=== PATIENT | female | born 1965 | race Caucasian/White ===

== ENCOUNTER 2016-09-04 20:11 | Inpatient (IN) | payer MEDICARE ==
[~2016-09-04] VITALS: Ht 165.1 cm; Wt 74.4 kg
[~2016-09-04 20:11] MED LIST: AMBIEN10 MG PO; BACTRIM DS TABL1 TAB PO; CLIMARA 0.0.075 MG/P TD; DEPAKENE250 MG PO; HYDROCODONE-APA1 TAB PO; KLONOPIN1 MG PO; METHADONE5 MG PO; NICODERM C1 PATCH .1 TRANSDERM; NORVASC10 MG PO; OXYCODONE HCL10 MG PO; PRILOSEC20 MG PO; SEROQUEL300 MG PO; SOMA350 MG PO; SUBUTEX8 MG TD; TOPROL XL100 MG PO; TOPROL XL50 MG PO; VALIUM10 MG PO; ZANAFLEX4 MG PO; ZOFRAN ODT4 MG/UDTAB PO
[2016-09-04 21:19] LABS: BASOPHILS 0.1 % (0.0-2.0); EOSINOPHILS 0.1 % (0-7); HEMOGLOBIN 12.6 g/dL (12-16); IMMATURE GRANULOCYTES 0.3 % (0-5); LYMPHOCYTES 10.2 % (15-50); MCH 32.5 pg (26.0-34.0); MCHC 32.3 g/dL (31.0-37.0); MCV 100.5 fL (80.0-100.0); MEAN PLATELET VOLUME 11.6 fL (7.4-10.4); NEUTROPHILS 77.3 % (40-80); PLATELET COUNT 172 10x3/uL (130-400); RBC 3.88 10x6/uL (4.00-5.40); RDW 13.2 % (11.5-14.5); WBC 12.2 10x3/uL (4.8-10.8)
[2016-09-04 22:09] LABS: ALBUMIN 3.5 g/dL (3.4-5.0); ALKALINE PHOSPHATASE 66 U/L (46-116); ALT (SGPT) 15 U/L (10-68); CALC OSMOLALITY 279 mosm/kg (275-300); CALCIUM 9.2 mg/dL (8.5-10.1); CARBON DIOXIDE 29.6 mmol/L (21.0-32.0); CHLORIDE - SERUM 102 mmol/L (98-107); CREATININE - SERUM 0.7 mg/dL (0.6-1.3); GLUCOSE 109 mg/dL (74-106); POTASSIUM - SERUM 3.4 mmol/L (3.5-5.1); PROTEIN - SERUM 7.5 g/dL (6.4-8.2); SODIUM 141 mmol/L (136-145); UREA NITROGEN 8 mg/dL (7-18); eGFR NON AFRICAN AMERICAN > 90 mL/min (90-120)
[2016-09-04 22:26] LABS: CREATINE KINASE 162 UL (21-215)
[2016-09-04 22:32] LABS: TROPONIN-I 0.087 ng/mL (0.000-0.060)
[2016-09-04 23:14] LABS: APPEARANCE CLOUDY (CLEAR); BILIRUBIN NEGATIVE (NEGATIVE); COLOR YELLOW (YELLOW); GLUCOSE NEGATIVE (NEGATIVE); KETONE SMALL mg/dL (NEGATIVE); LEUKOCYTE ESTERASE TRACE (NEGATIVE); NITRITE NEGATIVE (NEGATIVE); PROTEIN TRACE mg/dL (NEGATIVE); UROBILINOGEN NORMAL (NORMAL)
[2016-09-04 23:15] LABS: UDS - AMPHET NEGATIVE QUAL (NEGATIVE); UDS - BARB NEGATIVE QUAL (NEGATIVE); UDS - BENZO POSITIVE QUAL (NEGATIVE); UDS - COCAINE NEGATIVE QUAL (NEGATIVE); UDS - METH NEGATIVE QUAL (NEGATIVE); UDS - OPIATE POSITIVE QUAL (NEGATIVE); UDS - PCP NEGATIVE QUAL (NEGATIVE); UDS - THC NEGATIVE QUAL (NEGATIVE)
[2016-09-04 23:16] LABS: RED CELLS - URINE 0-5 /hpf (0-5); WHITE CELLS - URINE 0-5 /hpf (0-5)
[2016-09-04 23:17] LABS: BACTERIA FEW /hpf (NONE SEEN)
[2016-09-05] VITALS (28 sets, daily range): BP systolic 109–178; BP diastolic 59–121; BMI 27.3
[2016-09-05 00:52] LABS: ACETAMINOPHEN 1.7 ug/mL (10.0-30.0); VALPROIC ACID (DEPAKOTE) 57.2 ug/mL (50.0-100.0)
--- NOTE | 2016-09-05 02:00 | NUR ---
PT REC'D TO ROOM 2305 FROM ER ON STRETCHER, PT ABLE TO MOVE SELF OVER TO BED, LEFT EJ PIV WITH NS @ 10CC/HR, CM-ST@ 100, BP ELEVATED, ABRASION NOTED TO RIGHT CHILEL, PT WILL AWAKEN TO VERBAL STIMULI, ORIENTED X 3, O2 @ 4LITERS VIA NC, MAEE, SR UP X 2, CALL LIGHT IN REACH.
--- NOTE | 2016-09-05 02:20 | NUR ---
AND SISTER BROUGHT TO BS, UPDATE GIVEN AND QUESTIONS ANSWERED, PT RESTING EYES CLOSED, BP REMAINS ELEVATED, WILL MONITOR CLOSELY FOR CHANGES.
--- NOTE | 2016-09-05 03:15 | NUR ---
SPOKE WITH DR. ARREGUIN REGARDING ELEVATED BP, NEW ORDERS REC'D.
--- NOTE | 2016-09-05 03:30 | NUR ---
20MG LABETALOL GIVEN SLOW IVP, BP 158/112, HR 110, PT RESTING EYES CLOSED, RESP EVEN AND UNLABORED.
--- NOTE | 2016-09-05 03:45 | NUR ---
SPOKE WITH DR. ARREGUIN REGARDING PT'S ELEVATED BP, NEW ORDERS REC'D.
--- NOTE | 2016-09-05 04:00 | NUR ---
BP IMPROVED 153/96, WILL CONT TO MONITOR CLOSELY FOR CHANGES.
--- NOTE | 2016-09-05 04:45 | NUR ---
PT AWAKE, REQUESTING TO GO TO THE BATHROOM, PT GROGGY, PLACED ON BEDPAN, BP TRENDING UP.
--- NOTE | 2016-09-05 05:10 | NUR ---
PT REMOVED FROM BEDPAN, VOIDED 350CC CONCENTRATED URINE, PERICARE GIVEN, BP ELEVATED 169/102 WILL REPEAT LABETALOL DOSE
--- NOTE | 2016-09-05 05:45 | NUR ---
LABETALOL 40MG GIVEN SLOWLY OVER SEVERAL MINUTES, PT RESTING EYES CLOSED, VSS.
--- NOTE | 2016-09-05 06:15 | NUR ---
FAMILY AT BS, UPDATE GIVEN AND QUESTIONS ANSWERED.
--- NOTE | 2016-09-05 13:18 | NUR ---
Is the patient Alert and Oriented? Yes 0 * How many steps to enter\exit or inside your home? 3 0 * PCP DR. LOJA 0 * Pharmacy [facility] 0 * Preadmission Environment Home with Family 0 * ADLs Independent 0 * Equipment Cane 0 * List name and contact numbers for known caregivers / representatives who currently or will assist patient after discharge: SPOUSE: CRISTINA [phone] SON: CRISTINA [phone] SISTER: ALFRED [phone] * Community resources currently utilized None 0 * Additional services required to return to the preadmission environment? No 0 * Can the patient safely return to the preadmission environment? Yes 0 * Has this patient been hospitalized within the prior 30 days at any hospital? No PATIENT STATES SHE LIVES AT HOME WITH HER , CRISTINA AND HER SON, CRISTINA. PATIENT STATES THAT DR. LOJA IS HER PCP. SHE GETS HER MEDS FROM [facility]. PATIENT STATES SHE HAS A CANE. SHE HAD [facility] WITHIN THE LAST 6 MONTHS. THERE ARE 3 STEPS TO ENTER HER HOME. SHE STATES HER WILL BE AVAILABLE TO DRIVE HER HOME AT DISCHARGE. NO DISCHARGE NEEDS IDENTIFIED AT THIS TIME.
--- NOTE | 2016-09-05 19:30 | NUR ---
REPORT REC'D AND CARE ASSUMED, REC'D PT RESTING IN BED ON O2 @ 2LITERS VIA NC, PT AWAKENS TO VERBAL STIMULI ORIENTED X 3, LEFT EXTERNAL JUGULAR PIV WITH NS INFUSING @ 125CC/HR, MAEE, PT DENIES PAIN OR NEEDS, BILAT SCD'S IN PLACE AND ON, SR UP X 2, CALL LIGHT IN REACH.
--- NOTE | 2016-09-05 20:15 | NUR ---
PT ASSISTED UP TO BSC TO VOID, VOIDED 300 CC CLEAR YELLOW URINE, BACK TO BED WITHOUT DIFFICULTY.
--- NOTE | 2016-09-05 20:35 | NUR ---
EVENING MEDS GIVEN WITH WATER, NO FURTHER NEEDS VOICED.
--- NOTE | 2016-09-05 21:00 | NUR ---
NO VISITORS IN AT THIS TIME.
--- NOTE | 2016-09-05 22:00 | NUR ---
PT ASSISTED UP TO BSC TO VOID, VOIDED 100 CC CLEAR YELLOW URINE, BACK TO BED, PT REQUESTING SOMETHING TO DRINK, APPLE JUICE PROVIDED ON REQUEST, CALL LIGHT IN REACH, VISIBLE TO NURSES STATION.
--- NOTE | 2016-09-05 23:15 | NUR ---
REASSESSMENT COMPLETED, PT DENIES NEEDS OR PAIN , VSS, WILL CONT TO MONITOR FOR CHANGES.
[2016-09-06] VITALS (17 sets, daily range): BP systolic 100–153; BP diastolic 54–113; Ht 165.1 cm; Wt 74.4 kg
--- NOTE | 2016-09-06 01:30 | NUR ---
PT AWAKE, REQUESTING SOMETHING TO SNACK ON, ICE CREAM PROVIDED, VSS, PT DENIES NEEDS.
--- NOTE | 2016-09-06 03:15 | NUR ---
RAIOLOGY @ BS FOR AM CXR.
--- NOTE | 2016-09-06 03:45 | NUR ---
PT COMPLAINS OF BEING HUNGRY, SANDWICH TRAY PROVIDED, PT REPOSITIONED UP IN BED FOR COMFORT, DENIES PAIN OR OTHER NEEDS, SR UP X 2, CALL LIGHT IN REACH.
--- NOTE | 2016-09-06 04:00 | NUR ---
LAB AT FOR AM LAB DRAW
--- NOTE | 2016-09-06 04:40 | NUR ---
ROUTINE MEDS GIVEN, PT STATES " I WISH I COULD GET OUT OF HERE, I WANT TO GO HOME"
[2016-09-06 04:54] LABS: BASOPHILS 0 % (0.0-2.0); EOSINOPHILS 0.2 % (0-7); HEMATOCRIT 35.9 % (36.0-48.0); HEMOGLOBIN 11.4 g/dL (12-16); IMMATURE GRANULOCYTES 0.4 % (0-5); LYMPHOCYTES 41.4 % (15-50); MCH 31.6 pg (26.0-34.0); MCHC 31.8 g/dL (31.0-37.0); MCV 99.4 fL (80.0-100.0); MEAN PLATELET VOLUME 11.8 fL (7.4-10.4); MONOCYTES 15.5 % (2-11); NEUTROPHILS 42.5 % (40-80); PLATELET COUNT 145 10x3/uL (130-400); RBC 3.61 10x6/uL (4.00-5.40); RDW 13.1 % (11.5-14.5)
[2016-09-06 05:31] LABS: CALC OSMOLALITY 289 mosm/kg (275-300); CALCIUM 8.8 mg/dL (8.5-10.1); CARBON DIOXIDE 30.3 mmol/L (21.0-32.0); CHLORIDE - SERUM 107 mmol/L (98-107); CREATININE - SERUM 0.7 mg/dL (0.6-1.3); GLUCOSE 113 mg/dL (74-106); POTASSIUM - SERUM 3.2 mmol/L (3.5-5.1); SODIUM 146 mmol/L (136-145); UREA NITROGEN 6 mg/dL (7-18); eGFR NON AFRICAN AMERICAN > 90 mL/min (90-120)
[2016-09-06 05:48] LABS: WBC 4.7 10x3/uL (4.8-10.8)
--- NOTE | 2016-09-06 06:15 | NUR ---
AM MEDS GIVEN, PT ASSISTED UP TO BSC AND BACK TO BED WITHOUT DIFFICULTY
--- NOTE | 2016-09-06 07:00 | NUR ---
ASSESSMENT COMPLETE PER FLOWSHEET.
--- NOTE | 2016-09-06 09:00 | NUR ---
SLEEPING NO DISTRESS NOTED. SR UP X2.
--- NOTE | 2016-09-06 11:00 | NUR ---
SLEEPING NO DISTRESS NOTED SR UP X 2. CALL LIGHT WITHIN REACH.
--- NOTE | 2016-09-06 12:00 | NUR ---
SITTING UP ON SIDE OF BED TO EAT LUNCH NO CO AT TIME.
--- NOTE | 2016-09-06 12:46 | CN ---
PATIENT NAME:RAFIA RANDHAWA MEDICAL RECORD: [id number] : 63 LOCATION:[facility]5 ADMIT DATE: 09/06/16 ACCOUNT: [id number] CONSULTING PHYSICIAN: CARO ROBERTSON MD REFERRING PHYSICIAN: ANTOINE CRANDALL MD DATE OF CONSULTATION: 09/05/2016 IDENTIFYING DATA: The patient is 50 years old and she is admitted to the hospital secondary to an overdose. CHIEF COMPLAINT: None. HISTORY OF PRESENT ILLNESS: The patient tells me that her mother 2 weeks ago and that she has been upset. She ordinarily takes multiple psychiatric and pain and anxiolytic medications. She apparently got a prescription for Valium pill then took 36, 10 mg tablets in 3-4 days. In addition to this, she has opiates in her system, although she does not have a prescription for opiates. She also takes Flexeril, Seroquel and Ambien. She apparently has a history of bipolar disorder and fibromyalgia. MENTAL STATUS EXAMINATION: The patient is sleepy, but alert and oriented. She has a mood that is depressed and an affect that is appropriate. Thought processes are goal directed. Memory, concentration and abstraction abilities are mildly impaired. She says that she must have something for pain or anxiety even though she is barely awake and clearly is still sedated. ASSESSMENT: 1. Polysubstance abuse. 2. Bipolar disorder by history. 3. Probable polysubstance abuse. PLAN: At this time, the patient is not acutely dangerous. I do not think that this was a suicide attempt. I do think the patient is in need of outpatient mental health. I have recommended substance abuse treatment to her on an inpatient basis. She has refused. I have recommended substance abuse treatment on an outpatient basis to her and she has also refused. I think the most reasonable thing is not to prescribe to her any RELIEF CAPTAIN depressants. I know that she will find that to be unacceptable, but I think that her inability to control her use of these behaviors and her unwillingness to accept substance use treatment is necessitating this decision. This was not a suicide attempt. I do not believe she was trying to hurt herself. Interestingly, she has a son who accidentally overdosed and , he was a substance abuser. She has a sister who has also accidentally overdosed and is a substance abuser. Given the circumstances in family history, it is almost stunning that the patient can insists that she does not have a substance use problem, but that is her position. I think prescribing RELIEF CAPTAIN depressants is not appropriate for her and I would strongly advise her practitioners not to do so. TRANSINT:[id number] Voice Confirmation ID: [id number] DOCUMENT ID: [id number] CONSULT REPORT [id number] RAFIA RANDHAWA PETER MD at 1246 CC: [id number] DICTATION DATE: 09/05/16 163 MULTI SLIDE MACHINE TENDER: 09/05/16 1847 ADM IN [facility] [address] [id number]
--- NOTE | 2016-09-06 17:00 | NUR ---
SITTING UP ON SIDE OF BED EATING SUPPER CO MIGRAINE. INSTRUCT THE ONLY THING ORDER IS TYLENOL.
--- NOTE | 2016-09-06 19:00 | NUR ---
RECEIVED PATIENT IN BED WITH EYES OPEN, ASSESSMENT COMPLETE PER FLOWSHEET. PATIENT IS AO X4, DEMEANOR IS PLEASANT BUT PATIENT "WANTS OUT OF THE HOSPITAL". EYES PERRLA @ 3MM WITH BRISK RESPONSE, SCLERA IS WHITE. 2L O2 VIA NC ORDERED BUT PATIENT REMOVED AND REFUSES TO WEAR, OXYGEN SAT 98%. ORAL/NASAL MUCOSA IS MOIST AND INTACT, TONGUE IS MIDLINE. 20G IV NOTED R EJ, PATENT WITH DRESSING CDI. S1/S2 NOTED WITH PATIENT NSR ON TELEMETRY, RATE IS RHYTHMIC AND REGULAR. LUNG SOUNDS ARE CLEAR THROUGHOUT, BREATHING IS EVEN AND EFFORTLESS. PATIENT VOIDS USING BEDSIDE COMMODE, NO IRRITATION OR REDNESS NOTED IN PERINEAL AREA. FULL ROM ALL EXTREMITIES, NO WEAKNESS NOTED. BIOMEDICAL EQUIPMENT TECH/PEDAL STRENGTH IS EQUAL AND BILATERAL, ALL PULSES PALPABLE. PATIENT STATES PAIN 2/10 IN BACK, REPOSITIONING AND MEDICATION PROVIDED. PATIENT DENIES OTHER NEEDS AT THIS TIME, ALL VSS AND WILL CONTINUE TO MONITOR.
[2016-09-07 03:00] VITALS: BP 129/86
[2016-09-07 03:25] LABS: BASOPHILS 0.2 % (0.0-2.0); EOSINOPHILS 0 % (0-7); HEMATOCRIT 36.9 % (36.0-48.0); HEMOGLOBIN 11.9 g/dL (12-16); IMMATURE GRANULOCYTES 0.5 % (0-5); LYMPHOCYTES 26.9 % (15-50); MCH 31.7 pg (26.0-34.0); MCHC 32.2 g/dL (31.0-37.0); MCV 98.4 fL (80.0-100.0); MEAN PLATELET VOLUME 11.5 fL (7.4-10.4); MONOCYTES 9.1 % (2-11); NEUTROPHILS 63.3 % (40-80); RBC 3.75 10x6/uL (4.00-5.40); RDW 12.9 % (11.5-14.5); WBC 5.5 10x3/uL (4.8-10.8)
[2016-09-07 03:26] LABS: PLATELET COUNT 189 10x3/uL (130-400)
[2016-09-07 03:35] LABS: CALCIUM 8.8 mg/dL (8.5-10.1); CARBON DIOXIDE 24.5 mmol/L (21.0-32.0); CHLORIDE - SERUM 105 mmol/L (98-107); CREATININE - SERUM 0.8 mg/dL (0.6-1.3); POTASSIUM - SERUM 3.3 mmol/L (3.5-5.1); SODIUM 142 mmol/L (136-145); eGFR NON AFRICAN AMERICAN 80 mL/min (90-120)
[2016-09-07 03:47] LABS: CALC OSMOLALITY 285 mosm/kg (275-300); GLUCOSE 195 mg/dL (74-106); UREA NITROGEN 8 mg/dL (7-18)
[2016-09-07 07:00] VITALS: BP 132/93
--- NOTE | 2016-09-07 07:00 | NUR ---
ASSESSMENT COMPLETE PER FLOWSHEET.
--- NOTE | 2016-09-07 11:00 | NUR ---
DR CRANDALL HERE MEDS CALLED INTO [facility]. PT DISCHARGE COMPLETE. IV DCD WITH [facility] INTACT. INSTRUCT PT TO FOLLOW UP WITH DR LOJA. PT WANTS TO MAKE OWN APPT FOR ONE WEEK. FOLLOW UP WITH [facility]. PT AND STATES THEY UNDERSTAND THE IMPORTANCE OF THE FOLLOW UPS AND WILL FOLLOW THROUGH WITH THEM. 1200 DISCHARGE TO HOME VIA PRIVATE AUTO. VOICES NO QUESTIONS AT THIS TIME. MEDICATIONS EXPLAINED TO HOW TO TAKE AND WHAT THEY ARE FOR. STATES HE UNDERSTANDS. INFORMATION ON ANTIBOTICS GIVEN TO . DESCRIPTIVE INFORMATION. LEFT WITH VIA PRIVATE AUTO. PT STATES, "I WANT A CIGERETTE SO IM NOT WAITING ON A WHEELCHAIR." PT LEFT WITH .
[2016-09-07] MEDS ORDERED: MEDROL DOSE PACK4 MG PO (11:58)
[2016-09-07] MEDS ORDERED: DOXYCYCLINE HY100 M2 PO (11:59)
[2016-09-07] MEDS ORDERED: CEFUROXIME250 MG PO (12:01)
--- NOTE | 2016-09-07 13:59 | EC ---
PATIENT:RAFIA RANDHAWA DATE OF SERVICE: 09/06/16 SEX: F MEDICAL RECORD: [id number] DATE OF : 63 LOCATION:[facility] AGE OF PATIENT: 50 ADMISSION DATE: 09/06/16 REFERRING PHYSICIAN: INTERPRETING PHYSICIAN: SHIREEN GRANDE MD ECHOCARDIOGRAM REPORT ECHO CHARGES 4 ECHO COMPLETE CLINICAL DIAGNOSIS: HTN ECHOCARDIOGRAPHIC MEASUREMENTS (adult normal given) AC root (d.<3.7cm) 3.4 LV Septum d (<1.2 cm> 1.7 Valve Excursion 1.6 LV Septum (systole) 2.0 Left Atria (s.<4.0cm> 3.3 LVPW d(<1.2cm) 2.0 RV (d.<2.3cm) 3.2 LVPW (sytole) 2.2 LV diastole(<5.6CM) 4.0 MV E-F(>70mm/sec) LV systole 2.0 LVOT Diameter 1.8 MV exc.(>10mm) 1.4 Est.ejection fraction (50-75%) Pericardial Effusion N DOPPLER: LVIT A 133 E 115 LA RVSP 22 LVOT 124 AOP1/2T Asc. Ao 164 RVOT 97 RA PA 123 AV Gradient Peak 10.73 AV Mean 6.51 AV Area 1.9 MV Gradient Peak 7.83 MV Mean 3.31 MV Area COMMENTS: Latex Caster: Kaylee PIERCE Glass Mould Cleaner:Vidhya Grande TAPE# PACS DATE OF SERVICE: 09/05/2016 FINDINGS: 1. Left ventricle chamber size is within normal limits. Left ventricular systolic function is normal. Overall ejection fraction estimated at 60%. 2. Left atrium is within normal limits at 3.3 cm. Right atrium and right ventricular chamber sizes are upper limits of normal. 3. Valvular structures have normal structure and motion. 4. Doppler interrogation reveals mild tricuspid regurgitation. No other valvular insufficiency or stenosis. Pulmonary systolic pressure is normal ECHOCARDIOGRAM REPORT [id number] RAFIA RANDHAWA estimated 22 mmHg. 5. No evidence of pericardial effusion or left ventricular thrombus. TRANSINT:[id number] Voice Confirmation ID: [id number] DOCUMENT ID: [id number] SHIREEN GRANED MD at 1350 CC: [id number] DICTATION DATE: 09/06/16929 MIDDLE SCHOOL MATH TEACHER: 09/06/16 1021 ADM IN [facility] [address] [place] [address]
--- NOTE | 2016-09-08 12:39 | CN ---
PATIENT NAME:RAFIA MONZON MEDICAL RECORD: [id number] : 63 LOCATION:[facility]2305 ADMIT DATE: 09/06/16 ACCOUNT: [id number] CONSULTING PHYSICIAN: JACOBO CAMPUZANO MD REFERRING PHYSICIAN: MARIELY CRANDALL MD DATE OF CONSULTATION: 09/05/2016 CONSULT REQUESTING PHYSICIAN: Mariely Crandall MD. REASON FOR CONSULTATION: Bilateral pneumonia, drug overdose, acute hypercapnic respiratory failure. HISTORY OF PRESENT ILLNESS: Ms. Monzon is a 50-year-old female, who was brought into the ER with acute mental status changes and possible drug overdose. According to the sister, their mother a few days ago and she was under a lot of stress. Probably, she takes some Valium to keep her nerves down. On evaluation in the ER, her CO2 was high and she was on respiratory acidosis. Also, her troponin level was high. Now, she is awake and alert. She has cough without significant sputum production. Also, she had some nausea, vomiting a few days ago and she thinks probably she might have aspirated when she was throwing up. REVIEW OF SYSTEMS: Mainly in the history of present illness. PAST MEDICAL HISTORY: 1. Seizure disorder. 2. Diabetes mellitus. 3. Hypertension. 4. COPD. 5. Chronic backache. PAST SURGICAL HISTORY: 1. Cholecystectomy. 2. . 3. Hysterectomy. 4. Shoulder surgery. ALLERGIES: SHE IS ALLERGIC TO CYMBALTA, TORADOL AND IMITREX. PRESENT MEDICATIONS: She is on Levaquin IV, discontinue. Her other medication is reviewed. PERSONAL AND SOCIAL HISTORY: The patient still continues to smoke almost a pack a day. She is a nondrinker. FAMILY HISTORY: Significant for cardiovascular disease and cancer. PHYSICAL EXAMINATION: GENERAL: Now, the patient is lying comfortably. She is not in acute distress. VITAL SIGNS: The blood pressure 135/83, pulse is 82, respirations 18, temperature is 99.7, SpO2 is 97% on 2 L nasal cannula. HEENT: Conjunctivae pink, sclerae nonicteric. NECK: Supple, no JVD. CHEST: The chest excursion is minimal on both bilateral crackles, wheezes on forceful expiration. CONSULT REPORT [id number] RAFIA MONZON HEART: Rhythm regular, normal sound, no murmur. ABDOMEN: Soft. Bowel sounds present. No hepatosplenomegaly. RECTAL: Deferred. EXTREMITIES: No cyanosis, no clubbing, no pedal edema. SKIN: Warm, normal turgor. CENTRAL NERVOUS SYSTEM: The patient is now awake and alert. There are no obvious cranial nerve abnormality. The gait was not tested. LABORATORY DATA: CBC: WBC is 12.2, hemoglobin 12.6, hematocrit is 39, the platelet count is 172. Chemistry: Sodium 141, potassium 3.4, BUN is 8, creatinine 0.7. ABG: The pH is 7.32, pCO2 of 61.1, pO2 is 69. IMPRESSION: 1. Acute hypoxic hypercapnic respiratory failure. 2. Respiratory acidosis secondary to #1. 3. Bilateral pneumonia, most likely community-acquired pneumonia, possibly aspiration at that time from nausea and vomiting. 4. Seizure disorder. 5. Drug overdose. 6. Tobacco dependence syndrome. 7. Acute exacerbation of chronic obstructive pulmonary disease. 8. Elevated troponin, possible stress leak. 9. Leukocytosis. 10. Hypokalemia. RECOMMENDATION: 1. I will start on Zosyn and doxycycline IV, albuterol/ipratropium nebulizer, Advair Diskus. As the patient has significant bronchospasm, I will start her IV corticosteroids. 2. Nicotine patch. 3. DVT prophylaxis. Dr. Crandall, once again, thanks for involving me in the care of Ms. Monzon. TRANSINT:[id number] Voice Confirmation ID: [id number] DOCUMENT ID: [id number] JACOBO CAMPUZANO MD at 1239 CC: PARIS LOJA MD [id number] DICTATION DATE: 09/05/16 1314 NEWS LIBRARIAN: 09/05/16 1422 DIS IN 09/07/[id number] [place] [address]
--- NOTE | 2016-09-17 07:17 | EEG ---
PATIENT:RAFIA RANDHAWA DATE OF SERVICE: 09/06/16 MEDICAL RECORD: [id number] DATE OF : 63 LOCATION:D.230 D.ICU ADMISSION DATE: 09/06/16 REFERRING PHYSICIAN: INTERPRETING PHYSICIAN: TITO BANDA MD DATE OF SERVICE: 09/06/2016 Referred as an inpatient by Dr. Freire, currently in room 2305. ELECTROENCEPHALOGRAM NUMBER: [id number]. DATE OF EXAMINATION: 09/05/2016 at 11:45 a.m. DATE OF : 1965 TECHNICAL DATA: This electroencephalographic recording consists of approximately 20 minutes of data collection utilizing the international 10/20 system of electrode placement and both referential and non-referential montages. Sixteen channels of electrocerebral recording are accompanied by the 17th channel dedicated to the electrocardiographic rhythm and 2 channels of electromyographic recording. Recording is performed in the lethargic state utilizing activation by photic stimulation. ELECTROENCEPHALOGRAPHIC DATA: The entirety of the recorded electrocerebral activity is performed in the lethargic state. Electromyographic artifact is diminished and rapid eye movements are not seen. The posterior dominant background consists of a symmetric semi-arrhythmic waxing and waning 6-7 Hz theta activity, which is suppressed by eye opening. The patient sleep with the appearance of typical 15 Hz sleep spindles and generalized symmetric and irregular delta slowing in the range of 2-3 Hz. The patient never appears to be fully alert. No focal slowing is identified. No epileptiform discharges are seen. Photic stimulation induces no abnormal change in the recorded electrocerebral activity. INTERPRETATION: Background slow (lethargy). This electroencephalographic recording is indicative of a mild to moderate diffuse encephalopathy. TRANSINT:[id number] Voice Confirmation ID: [id number] DOCUMENT ID: [id number] TITO BANDA MD at 0717 CC: [id number] DICTATION DATE: 09/06/16 0855 COOK FRY: 09/06/16 1011 DIS IN 09/07/16 [place] [address]
== END 2016-09-07 14:19 | disposition home or self-care (01) | DRG 917 ==
LOC: D.ER 20:11 → OBSVTIME 09-05 01:02 → D.ICU 09-05 01:02
PROVIDERS: Emergency Medicine Emergency Medical Services; ADMIT Emergency Medicine
DX: T42.4X1A Poisoning by benzodiazepines, accidental (unintentional), initial encounter (principal); G93.41 Metabolic encephalopathy; J96.02 Acute respiratory failure with hypercapnia; G93.49 Other encephalopathy; J69.0 Pneumonitis due to inhalation of food and vomit; J44.0 Chronic obstructive pulmonary disease with (acute) lower respiratory infection; I24.8 Other forms of acute ischemic heart disease; J44.1 Chronic obstructive pulmonary disease with (acute) exacerbation; F31.9 Bipolar disorder, unspecified; E11.9 Type 2 diabetes mellitus without complications; I10 Essential (primary) hypertension; R56.9 Unspecified convulsions; G89.29 Other chronic pain; E87.6 Hypokalemia; F17.200 Nicotine dependence, unspecified, uncomplicated

== ENCOUNTER 2017-01-16 16:09 | Emergency (ER) | payer MEDICARE ==
[2016-09-06 09:45] VITALS: BMI 27.3
[~2017-01-16 16:09] MED LIST changes: +CEFUROXIME250 MG PO; +DOXYCYCLINE HY100 M2 PO; +MEDROL DOSE PACK4 MG PO
[2017-01-16 17:11] LABS: BASOPHILS 0.1 % (0-2); EOSINOPHILS 0.7 % (0-7); HEMATOCRIT 38.1 % (36.0-48.0); HEMOGLOBIN 12.8 g/dL (12-16); IMMATURE GRANULOCYTES 0.5 % (0-5); LYMPHOCYTES 37.9 % (15-50); MCH 32.2 pg (26.0-34.0); MCHC 33.6 g/dL (31.0-37.0); MEAN PLATELET VOLUME 12.9 fL (7.4-10.4); MONOCYTES 6.4 % (2-11); NEUTROPHILS 54.4 % (40-80); RBC 3.97 10x6/uL (4.00-5.40); RDW 12.4 % (11.5-14.5); WBC 10.1 10x3/uL (4.8-10.8)
[2017-01-16 17:21] LABS: APPEARANCE SLT CLOUDY (CLEAR); BILIRUBIN NEGATIVE (NEGATIVE); COLOR STRAW (YELLOW); GLUCOSE NEGATIVE (NEGATIVE); KETONE NEGATIVE (NEGATIVE); LEUKOCYTE ESTERASE TRACE (NEGATIVE); NITRITE NEGATIVE (NEGATIVE); PROTEIN NEGATIVE (NEGATIVE); SPECIFIC GRAVITY 1.005 (1.005-1.020); UROBILINOGEN NORMAL (NORMAL); WHITE CELLS - URINE 0-5 /hpf (0-5)
[2017-01-16 17:22] LABS: BACTERIA MODERATE /hpf (NONE SEEN); MUCUS <1+ /lpf (NONE SEEN)
[2017-01-16 17:44] LABS: ALBUMIN 3.6 g/dL (3.4-5.0); ALKALINE PHOSPHATASE 69 U/L (46-116); ALT (SGPT) 13 U/L (10-68); BILIRUBIN - TOTAL 0.42 mg/dL (0.2-1.3); CALC OSMOLALITY 280 mosm/kg (275-300); CALCIUM 9.1 mg/dL (8.5-10.1); CARBON DIOXIDE 28.2 mmol/L (21.0-32.0); CHLORIDE - SERUM 106 mmol/L (98-107); CREATININE - SERUM 0.7 mg/dL (0.6-1.3); POTASSIUM - SERUM 3.9 mmol/L (3.5-5.1); SODIUM 142 mmol/L (136-145); UREA NITROGEN 6 mg/dL (7-18); eGFR NON AFRICAN AMERICAN > 90 mL/min (90-120)
[2017-01-16 17:45] LABS: GLUCOSE 97 mg/dL (74-106)
[2017-01-16 18:26] LABS: PLATELET COUNT 173 10x3/uL (130-400); PLATELET ESTIMATE NORMAL
== END 2017-01-16 18:49 | disposition home or self-care (01) ==
LOC: D.ER 16:09
PROVIDERS: Emergency Medicine
DX: R10.9 Unspecified abdominal pain (principal); R11.2 Nausea with vomiting, unspecified; F17.200 Nicotine dependence, unspecified, uncomplicated

== ENCOUNTER 2017-01-20 09:47 | Emergency (ER) | payer MEDICARE ==
[2016-09-06 09:45] VITALS: BMI 27.3
[2017-01-20 10:16] LABS: BASOPHILS 0.1 % (0-2); EOSINOPHILS 0 % (0-7); HEMATOCRIT 38.8 % (36.0-48.0); HEMOGLOBIN 12.8 g/dL (12-16); IMMATURE GRANULOCYTES 0.2 % (0-5); LYMPHOCYTES 11.9 % (15-50); MCH 32.1 pg (26.0-34.0); MCV 97.2 fL (80.0-100.0); MEAN PLATELET VOLUME 11.8 fL (7.4-10.4); MONOCYTES 6.7 % (2-11); NEUTROPHILS 81.1 % (40-80); PLATELET COUNT 163 10x3/uL (130-400); RBC 3.99 10x6/uL (4.00-5.40); RDW 12.5 % (11.5-14.5); WBC 16.1 10x3/uL (4.8-10.8)
[2017-01-20 10:21] LABS: AMORPHOUS SEDIMENT <1+ /lpf (NONE SEEN); APPEARANCE CLOUDY (CLEAR); BACTERIA MODERATE /hpf (NONE SEEN); BILIRUBIN NEGATIVE (NEGATIVE); COLOR YELLOW (YELLOW); GLUCOSE NEGATIVE (NEGATIVE); KETONE NEGATIVE (NEGATIVE); LEUKOCYTE ESTERASE NEGATIVE (NEGATIVE); NITRITE NEGATIVE (NEGATIVE); PROTEIN NEGATIVE (NEGATIVE); RED CELLS - URINE 0-5 /hpf (0-5); UROBILINOGEN NORMAL (NORMAL); WHITE CELLS - URINE 0-5 /hpf (0-5)
[2017-01-20 10:25] LABS: ALBUMIN 3.4 g/dL (3.4-5.0); BILIRUBIN - TOTAL 0.46 mg/dL (0.2-1.3); CALCIUM 9.2 mg/dL (8.5-10.1); CARBON DIOXIDE 26.5 mmol/L (21.0-32.0); CREATININE - SERUM 0.9 mg/dL (0.6-1.3); POTASSIUM - SERUM 3.5 mmol/L (3.5-5.1); PROTEIN - SERUM 7.2 g/dL (6.4-8.2)
[2017-01-20 10:39] LABS: UDS - AMPHET NEGATIVE QUAL (NEGATIVE); UDS - BARB NEGATIVE QUAL (NEGATIVE); UDS - BENZO NEGATIVE QUAL (NEGATIVE); UDS - COCAINE NEGATIVE QUAL (NEGATIVE); UDS - METH NEGATIVE QUAL (NEGATIVE); UDS - OPIATE POSITIVE QUAL (NEGATIVE); UDS - PCP NEGATIVE QUAL (NEGATIVE); UDS - THC POSITIVE QUAL (NEGATIVE)
== END 2017-01-20 12:58 | disposition home or self-care (01) ==
LOC: D.ER 09:47
PROVIDERS: Emergency Medicine; Nurse Practitioner Family
DX: J18.9 Pneumonia, unspecified organism (principal); F17.200 Nicotine dependence, unspecified, uncomplicated

== ENCOUNTER 2017-02-27 09:38 | Emergency (ER) | payer MEDICARE ==
[2016-09-06 09:45] VITALS: BMI 27.3
== END 2017-02-27 12:04 | disposition home or self-care (01) ==
LOC: D.ER 09:38
DX: G43.909 Migraine, unspecified, not intractable, without status migrainosus (principal); R11.2 Nausea with vomiting, unspecified

== ENCOUNTER → 2017-04-09 10:08 | Outpatient (CLI) | payer MEDICARE ==
[2016-09-06 09:45] VITALS: BMI 27.3
== END | disposition home or self-care (01) ==
LOC: D.US 10:08
DX: E04.1 Nontoxic single thyroid nodule (principal)

== ENCOUNTER → 2017-06-14 09:49 | Outpatient (CLI) | payer MEDICARE ==
[2016-09-06 09:45] VITALS: BMI 27.3
[~2017-06-14 09:49] MED LIST changes: +DEPAKOTE500 MG PO; +METOPROLOL TART50 MG PO; +TOFRANIL25 MG PO
== END | disposition home or self-care (01) ==
LOC: D.US 09:49
DX: E04.1 Nontoxic single thyroid nodule (principal)

== ENCOUNTER 2017-07-31 05:10 | Day surgery (SDC) | payer MEDICARE ==
[2017-07-27 14:41] LABS: BASOPHILS 0.1 % (0-2); EOSINOPHILS 1.1 % (0-7); HEMATOCRIT 42.3 % (36.0-48.0); HEMOGLOBIN 14.2 g/dL (12-16); IMMATURE GRANULOCYTES 0.4 % (0-5); LYMPHOCYTES 47.3 % (15-50); MCH 32.6 pg (26.0-34.0); MCHC 33.6 g/dL (31.0-37.0); MCV 97.2 fL (80.0-100.0); MEAN PLATELET VOLUME 10.9 fL (7.4-10.4); MONOCYTES 7.7 % (2-11); NEUTROPHILS 43.4 % (40-80); PLATELET COUNT 193 10x3/uL (130-400); RBC 4.35 10x6/uL (4.00-5.40); RDW 12.9 % (11.5-14.5); WBC 8.6 10x3/uL (4.8-10.8)
[2017-07-27 15:01] LABS: CALC OSMOLALITY 279 mosm/kg (275-300); CALCIUM 9.3 mg/dL (8.5-10.1); CARBON DIOXIDE 30.3 mmol/L (21.0-32.0); CHLORIDE - SERUM 103 mmol/L (98-107); CREATININE - SERUM 0.7 mg/dL (0.6-1.3); GLUCOSE 87 mg/dL (74-106); POTASSIUM - SERUM 4.2 mmol/L (3.5-5.1); SODIUM 142 mmol/L (136-145); UREA NITROGEN 8 mg/dL (7-18); eGFR NON AFRICAN AMERICAN > 90 mL/min (90-120)
[~2017-07-31] VITALS: Ht 165.1 cm; Wt 74.8 kg
--- NOTE | ~2017-07-31 | OP ---
PATIENT NAME: RAFIA RANDHAWA MEDICAL RECORD: [id number] :63 LOCATION:[facility]- ADMISSION DATE:07/31/17 SURGEON: DOUGLAS ELENA MD DATE OF OPERATION: 07/31/2017 PREOPERATIVE DIAGNOSES: 1. Bilateral thyroid nodules. 2. Left follicular thyroid nodule. 3. Hypertensive disorder. 4. Tobacco dependence syndrome. POSTOPERATIVE DIAGNOSES: 1. Bilateral thyroid nodules. 2. Left follicular thyroid nodule. 3. Hypertensive disorder. 4. Tobacco dependence syndrome. PROCEDURE: Total thyroidectomy. SURGEON: Douglas Elena MD REPORT OF PROCEDURE: The patient's neck was prepped and draped in sterile fashion. A transverse incision was made through a skin crease in the patient's mid neck. Electrocautery was used to dissect through the subcutaneous tissues and the platysma. We then made subcutaneous flaps overlying the strap musculature. The median raphe was then opened up using electrocautery. We approached the left side of the thyroid first. We were able to elevate the strap musculature, and using a peanut, we were able to takedown some of the adhesions. We continued our dissection superiorly and took down the right thyroidal vessels using 2-0 silk ties. We then continued our mobilization on the inferior aspect of the thyroid and took down the inferior thyroidal vessels again with 2-0 silk ties. We then did a tedious dissection of the thyroid off the surrounding tissues. The nodular mass was not adherent to any structures and did not have any sort of cancerous adhesions that were visible. The posterior aspect of the thyroid did dip down towards the tracheoesophageal groove and made the dissection very difficult, but we were eventually able to remove the thyroidal tissue using blunt dissection and electrocautery. The inferior parathyroid gland was visualized and appeared to be normal in appearance. I did not see the superior thyroid gland on the left side. I was never able to clearly visualize the patient's recurrent laryngeal nerve on the left. At this point, we placed a thyroidal tissue back in its natural position and approached the right side. Again, the scanty adhesions were taken down using a peanut. At this point, we could see that this portion of the thyroid appeared to be normal with no distinctively large masses present. The superior and inferior thyroidal vessels were freed up and ligated using 2-0 silk ties. Again, tedious dissection was performed of the remainder of the thyroid, taking it off the surrounding attachments and any vasculature that was encountered was treated with either 4-0 ties or small clips. Eventually, we were able to completely dissect the thyroid off the surrounding tissues and sent it off intact for permanent specimen. I was able to see the recurrent laryngeal nerve on the left side and it appeared to be intact. We irrigated out the wound thoroughly with normal saline and any potential bleeding surfaces were treated with clips or 4-0 ties. At conclusion of the case, I saw no sign of any active surgical bleeding. We then filled up the space using thrombin-soaked Gelfoam. The strap musculature was then reapproximated in the midline using running 2-0 OPERATIVE REPORT [id number] RAFIA RANDHAWA Vicryls. Bernardo's was then reapproximated with interrupted 3-0 Vicryl. A total of 10 mL of 0.25% Marcaine with epinephrine was infused into the surrounding tissues and the skin was closed with running subcutaneous 5-0 Monocryl. A dressing was then applied. COMPLICATIONS: None. CONDITION: Stable. ANESTHESIA: General endotracheal and local. BLOOD LOSS: 30 mL. TRANSINT:[id number] Voice Confirmation ID: [id number] DOCUMENT ID: [id number] DOUGLAS ELENA MD at 1542 CC: PARIS LOJA MD [id number] DICTATION DATE: 07/31/17 1157 PLUG GROWER: 07/31/17 1232 ADM IN [facility] [address] [id number]
[~2017-07-31 05:10] MED LIST changes: -TOFRANIL25 MG PO
[2017-07-31] MEDS ORDERED: TOFRANIL25 MG PO (08:16)
[2017-07-31 08:29] VITALS: BP 155/103; Ht 165.1 cm; Wt 74.8 kg
[2017-07-31] MEDS ORDERED: HYDROCODONE-APA1 TAB PO (11:49)
== END 2017-07-31 19:36 | disposition home or self-care (01) ==
LOC: D.SDCHOLD 05:10 → D.OPS 05:10 → EDSTATUS 10:00 → D.SDCHOLD 10:00 → D.OPS 19:36 → D.SDCHOLD 19:36
PROVIDERS: Surgery
DX: E04.2 Nontoxic multinodular goiter (principal); F17.203 Nicotine dependence unspecified, with withdrawal; I10 Essential (primary) hypertension; J44.9 Chronic obstructive pulmonary disease, unspecified; K21.9 Gastro-esophageal reflux disease without esophagitis

== ENCOUNTER 2017-10-09 19:00 | Inpatient (IN) | payer MEDICARE ==
[~2017-10-09] VITALS: Ht 165.1 cm; Wt 74.8 kg
[~2017-10-09 19:00] MED LIST changes: +TOFRANIL25 MG PO
[2017-10-09 19:34] LABS: BASOPHILS 0.1 % (0-2); EOSINOPHILS 0.7 % (0-7); HEMATOCRIT 41.6 % (36.0-48.0); HEMOGLOBIN 14.4 g/dL (12-16); IMMATURE GRANULOCYTES 0.2 % (0-5); LYMPHOCYTES 41.3 % (15-50); MCHC 34.6 g/dL (31.0-37.0); MCV 95.2 fL (80.0-100.0); MONOCYTES 6.5 % (2-11); NEUTROPHILS 51.2 % (40-80); PLATELET COUNT 188 10x3/uL (130-400); RBC 4.37 10x6/uL (4.00-5.40); RDW 13.2 % (11.5-14.5); WBC 10.9 10x3/uL (4.8-10.8)
[2017-10-09 19:50] LABS: ALBUMIN 4.2 g/dL (3.4-5.0); ALKALINE PHOSPHATASE 57 U/L (46-116); ALT (SGPT) 19 U/L (10-68); AMYLASE - SERUM 35 U/L (25-115); BILIRUBIN - TOTAL 0.51 mg/dL (0.2-1.3); CALC OSMOLALITY 280 mosm/kg (275-300); CALCIUM 9.4 mg/dL (8.5-10.1); CARBON DIOXIDE 23.6 mmol/L (21.0-32.0); CHLORIDE - SERUM 104 mmol/L (98-107); CREATININE - SERUM 0.7 mg/dL (0.6-1.3); GLUCOSE 93 mg/dL (74-106); LIPASE 105 U/L (73-393); PROTEIN - SERUM 7.8 g/dL (6.4-8.2); SODIUM 141 mmol/L (136-145); UREA NITROGEN 13 mg/dL (7-18); eGFR NON AFRICAN AMERICAN > 90 mL/min (90-120)
[2017-10-09 22:02] LABS: APPEARANCE CLEAR (CLEAR); BILIRUBIN NEGATIVE (NEGATIVE); COLOR YELLOW (YELLOW); GLUCOSE NEGATIVE (NEGATIVE); KETONE NEGATIVE (NEGATIVE); NITRITE NEGATIVE (NEGATIVE); PROTEIN NEGATIVE (NEGATIVE); UROBILINOGEN NORMAL (NORMAL)
[2017-10-10] MEDS ORDERED: TOFRANIL50 MG PO (01:04)
[2017-10-10 01:26] VITALS: BP 146/100; BMI 27.3
[2017-10-10 05:23] VITALS: BP 149/96
[2017-10-10 05:50] LABS: BASOPHILS 0.1 % (0-2); EOSINOPHILS 1.4 % (0-7); HEMATOCRIT 42.5 % (36.0-48.0); HEMOGLOBIN 13.9 g/dL (12-16); IMMATURE GRANULOCYTES 0.1 % (0-5); LYMPHOCYTES 49.6 % (15-50); MCH 31.7 pg (26.0-34.0); MCHC 32.7 g/dL (31.0-37.0); MEAN PLATELET VOLUME 12.5 fL (7.4-10.4); MONOCYTES 7.5 % (2-11); NEUTROPHILS 41.3 % (40-80); PLATELET COUNT 183 10x3/uL (130-400); RBC 4.38 10x6/uL (4.00-5.40); RDW 13.3 % (11.5-14.5)
[2017-10-10 06:10] LABS: ALBUMIN 3.7 g/dL (3.4-5.0); ALKALINE PHOSPHATASE 48 U/L (46-116); ALT (SGPT) 19 U/L (10-68); CALC OSMOLALITY 283 mosm/kg (275-300); CALCIUM 8.6 mg/dL (8.5-10.1); CHLORIDE - SERUM 104 mmol/L (98-107); CREATININE - SERUM 0.7 mg/dL (0.6-1.3); GLUCOSE 98 mg/dL (74-106); POTASSIUM - SERUM 3.1 mmol/L (3.5-5.1); PROTEIN - SERUM 7.1 g/dL (6.4-8.2); SODIUM 143 mmol/L (136-145); eGFR NON AFRICAN AMERICAN > 90 mL/min (90-120)
[2017-10-10 06:11] LABS: UREA NITROGEN 9 mg/dL (7-18)
[2017-10-10 07:54] VITALS: BP 154/100
[2017-10-10 11:42] VITALS: BP 150/97
[2017-10-10 12:54] VITALS: Ht 165.1 cm; Wt 74.8 kg
[2017-10-10 16:20] VITALS: BP 122/77
[2017-10-10 19:00] VITALS: BP 121/83
[2017-10-11 04:00] VITALS: BP 151/99
[2017-10-11 06:42] LABS: HEMATOCRIT 44.2 % (36.0-48.0); HEMOGLOBIN 14.4 g/dL (12-16); MCHC 32.6 g/dL (31.0-37.0); MCV 98.2 fL (80.0-100.0); MEAN PLATELET VOLUME 12.1 fL (7.4-10.4); PLATELET COUNT 176 10x3/uL (130-400); RDW 13.2 % (11.5-14.5); WBC 6.1 10x3/uL (4.8-10.8)
[2017-10-11 07:04] LABS: ALBUMIN 3.6 g/dL (3.4-5.0); ALKALINE PHOSPHATASE 53 U/L (46-116); ALT (SGPT) 20 U/L (10-68); BILIRUBIN - TOTAL 0.46 mg/dL (0.2-1.3); C-REACTIVE PROTEIN 0.7 mg/dL (0.0-0.9); CALCIUM 9.1 mg/dL (8.5-10.1); CARBON DIOXIDE 28.4 mmol/L (21.0-32.0); CHLORIDE - SERUM 104 mmol/L (98-107); CREATININE - SERUM 0.8 mg/dL (0.6-1.3); GLUCOSE 107 mg/dL (74-106); PROTEIN - SERUM 7.2 g/dL (6.4-8.2); SODIUM 142 mmol/L (136-145); eGFR NON AFRICAN AMERICAN 80 mL/min (90-120)
[2017-10-11 07:06] LABS: CALC OSMOLALITY 280 mosm/kg (275-300); POTASSIUM - SERUM 3.7 mmol/L (3.5-5.1); UREA NITROGEN 6 mg/dL (7-18)
[2017-10-11 08:19] LABS: EOSINOPHILS 3 % (0-7); LYMPHOCYTES 49 % (15-50); MONOCYTES 9 % (2-11); NEUTROPHILS 38 % (40-80); PLATELET ESTIMATE NORMAL
[2017-10-11 08:35] LABS: ERYTHROCYTE SEDIMENTATION RATE 4 mm/hr (0-30)
[2017-10-11 09:23] VITALS: BP 193/114
[2017-10-11 11:30] VITALS: BP 155/95
[2017-10-11 17:47] VITALS: BP 161/96
[2017-10-11 21:06] VITALS: BP 151/100
[2017-10-12 00:58] VITALS: BP 166/104
[2017-10-12 04:00] VITALS: BP 154/96
[2017-10-12 07:06] LABS: BASOPHILS 0.3 % (0-2); EOSINOPHILS 1.9 % (0-7); HEMATOCRIT 47.8 % (36.0-48.0); IMMATURE GRANULOCYTES 0.2 % (0-5); MCH 32.7 pg (26.0-34.0); MCHC 33.5 g/dL (31.0-37.0); MCV 97.6 fL (80.0-100.0); MEAN PLATELET VOLUME 12.3 fL (7.4-10.4); MONOCYTES 7.9 % (2-11); NEUTROPHILS 41.7 % (40-80); PLATELET COUNT 146 10x3/uL (130-400); RDW 12.8 % (11.5-14.5); WBC 6.3 10x3/uL (4.8-10.8)
[2017-10-12 07:34] LABS: CALC OSMOLALITY 278 mosm/kg (275-300); CALCIUM 9.1 mg/dL (8.5-10.1); CARBON DIOXIDE 26.4 mmol/L (21.0-32.0); CHLORIDE - SERUM 105 mmol/L (98-107); CREATININE - SERUM 0.7 mg/dL (0.6-1.3); GLUCOSE 102 mg/dL (74-106); POTASSIUM - SERUM 3.6 mmol/L (3.5-5.1); SODIUM 142 mmol/L (136-145); eGFR NON AFRICAN AMERICAN > 90 mL/min (90-120)
[2017-10-12 07:36] LABS: UREA NITROGEN 2 mg/dL (7-18)
[2017-10-12 08:34] VITALS: BP 155/104
[2017-10-12 11:47] VITALS: BP 136/85
[2017-10-12 16:15] VITALS: BP 151/96
[2017-10-12 20:26] VITALS: BP 131/77
[2017-10-13 00:34] VITALS: BP 100/75
[2017-10-13 04:00] VITALS: BP 136/64
[2017-10-13 08:38] VITALS: BP 129/87
[2017-10-13 10:43] VITALS: BP 130/61
[2017-10-13 15:39] VITALS: BP 136/66
[2017-10-13 20:30] VITALS: BP 151/105
[2017-10-14 00:30] VITALS: BP 140/75
[2017-10-14 04:30] VITALS: BP 156/80
[2017-10-14 08:22] VITALS: BP 120/78
[2017-10-14] MEDS ORDERED: NICODERM C1 PATCH .3 TRANSDERM (09:45)
[2017-10-14] MEDS ORDERED: LEVAQUIN750 MG PO (09:45)
[2017-10-14] MEDS ORDERED: FLAGYL500 MG PO (09:46)
== END 2017-10-14 15:31 | disposition home or self-care (01) | DRG 392 ==
LOC: D.ER 19:00 → D.M2 22:55
PROVIDERS: Family Medicine; Internal Medicine Gastroenterology; Internal Medicine Nephrology
DX: A09 Infectious gastroenteritis and colitis, unspecified (principal); F31.30 Bipolar disorder, current episode depressed, mild or moderate severity, unspecified; E87.6 Hypokalemia; I10 Essential (primary) hypertension; E03.9 Hypothyroidism, unspecified; J44.9 Chronic obstructive pulmonary disease, unspecified; R16.0 Hepatomegaly, not elsewhere classified; F41.9 Anxiety disorder, unspecified; K58.9 Irritable bowel syndrome, unspecified; R56.9 Unspecified convulsions; Z72.0 Tobacco use; K57.90 Diverticulosis of intestine, part unspecified, without perforation or abscess without bleeding

== ENCOUNTER 2017-12-06 08:58 | Emergency (ER) | payer MEDICARE ==
[2017-10-10 12:54] VITALS: BMI 27.1
[~2017-12-06 08:58] MED LIST changes: +FLAGYL500 MG PO; +LEVAQUIN750 MG PO; +NICODERM C1 PATCH .3 TRANSDERM; +TOFRANIL50 MG PO
[2017-12-06 09:43] LABS: APPEARANCE CLEAR (CLEAR); COLOR YELLOW (YELLOW)
[2017-12-06 09:44] LABS: BILIRUBIN NEGATIVE (NEGATIVE); GLUCOSE NEGATIVE (NEGATIVE); KETONE NEGATIVE (NEGATIVE); NITRITE NEGATIVE (NEGATIVE); PROTEIN NEGATIVE (NEGATIVE); SPECIFIC GRAVITY 1.005 (1.005-1.020); UROBILINOGEN NORMAL (NORMAL)
[2017-12-06 10:28] LABS: BASOPHILS 0 % (0-2); EOSINOPHILS 0.5 % (0-7); HEMATOCRIT 44.8 % (36.0-48.0); IMMATURE GRANULOCYTES 0.2 % (0-5); LYMPHOCYTES 25.1 % (15-50); MCH 32.8 pg (26.0-34.0); MCHC 33.5 g/dL (31.0-37.0); MCV 97.8 fL (80.0-100.0); MEAN PLATELET VOLUME 11.7 fL (7.4-10.4); MONOCYTES 6.7 % (2-11); NEUTROPHILS 67.5 % (40-80); RBC 4.58 10x6/uL (4.00-5.40); RDW 12.7 % (11.5-14.5); WBC 8.6 10x3/uL (4.8-10.8)
[2017-12-06 10:36] LABS: PLATELET COUNT 218 10x3/uL (130-400)
[2017-12-06 10:40] LABS: AMYLASE - SERUM 32 U/L (25-115); LIPASE 85 U/L (73-393)
[2017-12-06 10:45] LABS: ALBUMIN 3.6 g/dL (3.4-5.0); ALKALINE PHOSPHATASE 65 U/L (46-116); ALT (SGPT) 15 U/L (10-68); BILIRUBIN - TOTAL 0.22 mg/dL (0.2-1.3); CALC OSMOLALITY 281 mosm/kg (275-300); CALCIUM 9.5 mg/dL (8.5-10.1); CHLORIDE - SERUM 106 mmol/L (98-107); CREATININE - SERUM 0.6 mg/dL (0.6-1.3); GLUCOSE 111 mg/dL (74-106); POTASSIUM - SERUM 3.9 mmol/L (3.5-5.1); PROTEIN - SERUM 7.7 g/dL (6.4-8.2); SODIUM 142 mmol/L (136-145); UREA NITROGEN 8 mg/dL (7-18); eGFR NON AFRICAN AMERICAN > 90 mL/min (90-120)
== END 2017-12-06 15:06 | disposition home or self-care (01) ==
LOC: D.ER 08:58
PROVIDERS: Emergency Medicine; Nurse Practitioner Family
DX: R10.9 Unspecified abdominal pain (principal); R11.10 Vomiting, unspecified; F17.200 Nicotine dependence, unspecified, uncomplicated

== ENCOUNTER 2018-04-22 11:35 | Emergency (ER) | payer MEDICARE, MEDICAID ==
[~2018-04-22] VITALS: Ht 165.1 cm; Wt 72.7 kg
[2018-04-22 11:50] VITALS: Ht 165.1 cm; Wt 72.7 kg
[2018-04-22 12:46] LABS: APPEARANCE CLEAR (CLEAR); BACTERIA FEW /hpf (NONE SEEN); BILIRUBIN NEGATIVE (NEGATIVE); COLOR YELLOW (YELLOW); GLUCOSE NEGATIVE (NEGATIVE); KETONE NEGATIVE (NEGATIVE); NITRITE NEGATIVE (NEGATIVE); PROTEIN NEGATIVE (NEGATIVE); RED CELLS - URINE 0-5 /hpf (0-5); SPECIFIC GRAVITY 1.005 (1.005-1.020); UROBILINOGEN NORMAL (NORMAL)
[2018-04-22 12:47] LABS: MUCUS <1+ /lpf (NONE SEEN); WHITE CELLS - URINE 0-5 /hpf (0-5)
[2018-04-22 12:53] LABS: BASOPHILS 0.1 % (0-2); EOSINOPHILS 0.1 % (0-7); HEMATOCRIT 41.8 % (36.0-48.0); HEMOGLOBIN 14.4 g/dL (12-16); IMMATURE GRANULOCYTES 0.9 % (0-5); LYMPHOCYTES 23.9 % (15-50); MCH 32.7 pg (26.0-34.0); MCHC 34.4 g/dL (31.0-37.0); MEAN PLATELET VOLUME 11.2 fL (7.4-10.4); MONOCYTES 5.6 % (2-11); NEUTROPHILS 69.4 % (40-80); PLATELET COUNT 328 10x3/uL (130-400); RDW 13.3 % (11.5-14.5); WBC 11.1 10x3/uL (4.8-10.8)
[2018-04-22 13:00] LABS: ALBUMIN 3.9 g/dL (3.4-5.0); ALKALINE PHOSPHATASE 71 U/L (46-116); ALT (SGPT) 14 U/L (10-68); BILIRUBIN - TOTAL 0.42 mg/dL (0.2-1.3); CALC OSMOLALITY 283 mosm/kg (275-300); CALCIUM 9.3 mg/dL (8.5-10.1); CARBON DIOXIDE 24.3 mmol/L (21.0-32.0); CHLORIDE - SERUM 105 mmol/L (98-107); CREATININE - SERUM 0.6 mg/dL (0.6-1.3); GLUCOSE 128 mg/dL (74-106); PROTEIN - SERUM 7.7 g/dL (6.4-8.2); SODIUM 143 mmol/L (136-145); UREA NITROGEN 5 mg/dL (7-18); eGFR NON AFRICAN AMERICAN > 90 mL/min (90-120)
[2018-04-22 13:06] LABS: AMYLASE - SERUM 33 U/L (25-115); LIPASE 112 U/L (73-393); TROPONIN-I < 0.017 ng/mL (0.000-0.060)
[2018-04-22] MEDS ORDERED: FLOMAX0.4 MG PO (14:26)
[2018-04-22] MEDS ORDERED: DILAUDID2 MG PO (14:26)
[2018-04-22 14:37] VITALS: BP 164/103
== END 2018-04-22 14:38 | disposition home or self-care (01) ==
LOC: D.ER 11:35
PROVIDERS: Emergency Medicine
DX: N20.1 Calculus of ureter (principal); R19.7 Diarrhea, unspecified; R53.1 Weakness; G40.909 Epilepsy, unspecified, not intractable, without status epilepticus; E07.9 Disorder of thyroid, unspecified; I10 Essential (primary) hypertension; J44.9 Chronic obstructive pulmonary disease, unspecified; F17.200 Nicotine dependence, unspecified, uncomplicated

== ENCOUNTER 2018-09-05 16:57 | Emergency (ER) | payer MEDICARE, MEDICAID ==
[~2018-09-05] VITALS: Ht 165.1 cm; Wt 79.5 kg
[~2018-09-05 16:57] MED LIST changes: +DILAUDID2 MG PO; +FLOMAX0.4 MG PO
[2018-09-05 17:00] VITALS: Ht 165.1 cm; Wt 79.5 kg
[2018-09-05 17:25] LABS: APPEARANCE CLEAR (CLEAR); BILIRUBIN NEGATIVE (NEGATIVE); COLOR STRAW (YELLOW); GLUCOSE NEGATIVE (NEGATIVE); KETONE NEGATIVE (NEGATIVE); NITRITE NEGATIVE (NEGATIVE); PROTEIN NEGATIVE (NEGATIVE); SPECIFIC GRAVITY 1.005 (1.005-1.020); UROBILINOGEN NORMAL (NORMAL)
[2018-09-05 17:47] LABS: BASOPHILS 0.1 % (0-2); EOSINOPHILS 0.8 % (0-7); HEMATOCRIT 40.8 % (36.0-48.0); HEMOGLOBIN 13.5 g/dL (12-16); IMMATURE GRANULOCYTES 0.6 % (0-5); LYMPHOCYTES 44.8 % (15-50); MCH 32.7 pg (26.0-34.0); MCHC 33.1 g/dL (31.0-37.0); MCV 98.8 fL (80.0-100.0); MEAN PLATELET VOLUME 11.4 fL (7.4-10.4); MONOCYTES 8.3 % (2-11); NEUTROPHILS 45.4 % (40-80); PLATELET COUNT 165 10x3/uL (130-400); RBC 4.13 10x6/uL (4.00-5.40); RDW 14.2 % (11.5-14.5); WBC 8.8 10x3/uL (4.8-10.8)
[2018-09-05 17:57] LABS: UDS - AMPHET NEGATIVE QUAL (NEGATIVE); UDS - BARB NEGATIVE QUAL (NEGATIVE); UDS - BENZO NEGATIVE QUAL (NEGATIVE); UDS - COCAINE NEGATIVE QUAL (NEGATIVE); UDS - OPIATE NEGATIVE QUAL (NEGATIVE); UDS - PCP NEGATIVE QUAL (NEGATIVE); UDS - THC POSITIVE QUAL (NEGATIVE)
[2018-09-05 18:05] LABS: ALBUMIN 3.7 g/dL (3.4-5.0); ALKALINE PHOSPHATASE 57 U/L (46-116); ALT (SGPT) 14 U/L (10-68); CALC OSMOLALITY 284 mosm/kg (275-300); CALCIUM 8.4 mg/dL (8.5-10.1); CARBON DIOXIDE 26.7 mmol/L (21.0-32.0); CHLORIDE - SERUM 106 mmol/L (98-107); CREATININE - SERUM 0.7 mg/dL (0.6-1.3); GLUCOSE 84 mg/dL (74-106); POTASSIUM - SERUM 3.5 mmol/L (3.5-5.1); PROTEIN - SERUM 7.1 g/dL (6.4-8.2); SODIUM 144 mmol/L (136-145); UREA NITROGEN 9 mg/dL (7-18); eGFR NON AFRICAN AMERICAN > 90 mL/min (90-120)
[2018-09-05 18:07] LABS: VALPROIC ACID (DEPAKOTE) 57.1 ug/mL (50.0-100.0)
[2018-09-06 03:37] VITALS: BP 175/96
== END 2018-09-06 03:41 ==
LOC: D.ER 16:57
PROVIDERS: Emergency Medicine
DX: R45.851 Suicidal ideations (principal); R44.1 Visual hallucinations; F17.200 Nicotine dependence, unspecified, uncomplicated

== ENCOUNTER 2018-10-05 19:42 | Inpatient (IN) | payer MEDICARE ==
[~2018-10-05] VITALS: Ht 165.1 cm; Wt 88.2 kg
[2018-10-05] MEDS ORDERED: PERCOCET 10-321 EAC1 PO (19:50)
--- NOTE | 2018-10-05 20:32 | NUR ---
PT SPOUSE NO LONGER AT PT BEDSIDE, CRISTINA [phone].
[2018-10-05 21:00] VITALS: BP 176/98
[2018-10-05 21:00] LABS: BASOPHILS 0.1 % (0-2); EOSINOPHILS 0.6 % (0-7); HEMATOCRIT 45.6 % (36.0-48.0); HEMOGLOBIN 14.8 g/dL (12-16); IMMATURE GRANULOCYTES 0.4 % (0-5); LYMPHOCYTES 25.5 % (15-50); MCH 32.2 pg (26.0-34.0); MCHC 32.5 g/dL (31.0-37.0); MCV 99.1 fL (80.0-100.0); MONOCYTES 10.2 % (2-11); NEUTROPHILS 63.2 % (40-80); RDW 13.8 % (11.5-14.5); WBC 17.5 10x3/uL (4.8-10.8)
[2018-10-05 21:03] LABS: PLATELET COUNT 215 10x3/uL (130-400)
[2018-10-05 21:15] LABS: ACETAMINOPHEN 2.3 ug/mL (10.0-30.0); ALBUMIN 4.3 g/dL (3.4-5.0); ANION GAP 17.1 mmol/L (8-16); BILIRUBIN - TOTAL 0.2 mg/dL (0.2-1.3); CALCIUM 9.1 mg/dL (8.5-10.1); CARBON DIOXIDE 28.6 mmol/L (21.0-32.0); CREATININE - SERUM 1.3 mg/dL (0.6-1.3); MAGNESIUM - SERUM 2.5 mg/dL (1.8-2.4); POTASSIUM - SERUM 3.7 mmol/L (3.5-5.1); PROTEIN - SERUM 8.8 g/dL (6.4-8.2)
--- NOTE | 2018-10-05 21:15 | NUR ---
PT SLEEPING, PT WAKES TO VERBAL STIMULI. PT APPEARS MORE ALERT AFTER RECEIVING IM NARCAN.
[2018-10-05 21:16] LABS: APPEARANCE HAZY (CLEAR); BILIRUBIN NEGATIVE (NEGATIVE); COLOR YELLOW (YELLOW); GLUCOSE NEGATIVE (NEGATIVE); KETONE NEGATIVE (NEGATIVE); NITRITE NEGATIVE (NEGATIVE); PROTEIN NEGATIVE (NEGATIVE); UROBILINOGEN NORMAL (NORMAL)
[2018-10-05 21:22] LABS: UDS - AMPHET NEGATIVE QUAL (NEGATIVE); UDS - BARB NEGATIVE QUAL (NEGATIVE); UDS - BENZO POSITIVE QUAL (NEGATIVE); UDS - COCAINE NEGATIVE QUAL (NEGATIVE); UDS - OPIATE POSITIVE QUAL (NEGATIVE); UDS - PCP NEGATIVE QUAL (NEGATIVE); UDS - THC POSITIVE QUAL (NEGATIVE)
[2018-10-05 22:00] VITALS: BP 168/89
--- NOTE | 2018-10-05 23:03 | NUR ---
RECEIVED REPORT TANK DAILEY IN THE ER, PATIENT NOT ON UNIT YET - NOTIFIED OF THE ADMIT. AWAITING PATIENT ARRIVAL
[2018-10-05 23:15] VITALS: BP 142/106
--- NOTE | 2018-10-05 23:23 | NUR ---
PATIENT ARRIVED ON UNIT VIA STRETCHER ACCOMPANIED BY ER STAFF. PATIENT ABLE TO SELF TRANSFER FROM STRETCHER TO BED, SLIGHTLY LETHARGIC BUT FOLLOWS COMMANDS. FALLS ASLEEP AND WAKES EASILY. 2L NC - PLACED ON ICU MONITORS FOR FURTHER EVALUATION. CPOC
[2018-10-05 23:30] VITALS: BP 149/98
--- NOTE | 2018-10-05 23:34 | NUR ---
PAGED COLD WATER MACHINE OPERATOR REGARDING BP FOR NEW ADMIT - ASSESSMENT COMPLETED SEE FLOWSHEET. CPOC
[2018-10-05 23:45] VITALS: BP 149/118
[2018-10-05 23:56] VITALS: BP 169/132; BMI 32.3
[2018-10-06] VITALS (23 sets, daily range): BP systolic 16–190; BP diastolic 58–129; Ht 165.1 cm; Wt 88.2 kg
--- NOTE | 2018-10-06 00:16 | NUR ---
PT FALLLING ASLEEP FREQUENTLY DURING HEALTH HISTORY ABLE TO ANSWER MOST QUESTIONS, SLOW TO RESPOND. FLAT AFFECT.
--- NOTE | 2018-10-06 00:51 | NUR ---
5 OUT OF 6 RINGS SENT WITH HOSPITAL STAFF TO LOCKER FOR SAFE KEEPING. UNABLE TO REMOVE 6TH RING FROM FINGER. RECEIPT IN CHART
--- NOTE | 2018-10-06 02:15 | NUR ---
PT RESTING COMFORTABLY EASILY ROUSED. PRESSURES STILL ELEVATED AT REST.
--- NOTE | 2018-10-06 04:11 | NUR ---
NO RETURN CALL RECEIVED FROM ADMITTING PHYSICIAN, SPOKE WITH ER DR. TINSLEY - ONE TIME ORDER RECEIVED
--- NOTE | 2018-10-06 05:06 | NUR ---
ONE TIME ORDER MEDICATION RECEIVED FROM RADIOCOMMUNICATIONS TECHNICIAN - SEE EMAR FOR ADMINISTRATION
--- NOTE | 2018-10-06 06:19 | NUR ---
PAGED DR SMITH REGARDING PATIENT BP - PATIENT CO HEADACHE
--- NOTE | 2018-10-06 06:44 | NUR ---
PAGED PHYSICIAN THROUGH [facility] AT THIS TIME
--- NOTE | 2018-10-06 07:25 | NUR ---
REC'ED REPORT FROM OUT GOING RN - CPOC
[2018-10-06 07:52] LABS: BASOPHILS 0.1 % (0-2); EOSINOPHILS 0.6 % (0-7); HEMATOCRIT 43.4 % (36.0-48.0); IMMATURE GRANULOCYTES 0.2 % (0-5); LYMPHOCYTES 22.4 % (15-50); MCH 32.1 pg (26.0-34.0); MCHC 32.3 g/dL (31.0-37.0); MCV 99.5 fL (80.0-100.0); MONOCYTES 13.7 % (2-11); PLATELET COUNT 184 10x3/uL (130-400); RBC 4.36 10x6/uL (4.00-5.40); RDW 13.9 % (11.5-14.5); WBC 9.3 10x3/uL (4.8-10.8)
--- NOTE | 2018-10-06 07:53 | NUR ---
ASSESSMENT COMPLETE - PT PLACED ON BED MCDONALD - AA&O X4 - ELEVATED B/P - AWAITING MD ORDERS -
--- NOTE | 2018-10-06 07:58 | NUR ---
DR SMITH CALLED BACK NEW ORDERS RECEIVED
[2018-10-06 08:09] LABS: CALC OSMOLALITY 292 mosm/kg (275-300); CALCIUM 8.9 mg/dL (8.5-10.1); CARBON DIOXIDE 28.2 mmol/L (21.0-32.0); CHLORIDE - SERUM 107 mmol/L (98-107); CREATININE - SERUM 0.7 mg/dL (0.6-1.3); GLUCOSE 110 mg/dL (74-106); MAGNESIUM - SERUM 2.4 mg/dL (1.8-2.4); PHOSPHOROUS 4.7 mg/dL (2.5-4.9); SODIUM 147 mmol/L (136-145); T4 THYROXIN - FREE 0.79 ng/dL (0.76-1.46); THYROID STIMULATING HORMONE 3.67 uIU/mL (0.36-3.74); UREA NITROGEN 13 mg/dL (7-18); eGFR NON AFRICAN AMERICAN > 90 mL/min (90-120)
--- NOTE | 2018-10-06 08:30 | NUR ---
BREAKFAST TRAY SET UP FOR PT - PT ABLE TO EAT WITHOUT DIFFICUTLY - CPOC
--- NOTE | 2018-10-06 09:21 | NUR ---
SISTER (ALFRED) CALLED FOR UPDATE - HAD PASSWORD ANSWERED QUESTTIONS TO FAMILY'S SATISFACTIN - CPOC
--- NOTE | 2018-10-06 10:05 | NUR ---
SPOKE TO - ANSWERED ALL QUESTIONS TO HUSBANDS SATISFACTION - ASKED FOR ASSISTANCE TO WEAN PATIENT OFF PAIN MEDCATIONS. OFFERED CASE MANAGEMENT CONSULT - AGREED TO CONSULT - DISCUSSED LOCKING PAIN MEDICATIONS IN A 'GUN'SAFE OR A LOCKED BOX AND ONLY WITH KAYE. STATED HE HAS DONE THAT IN THE PAST AND WILL RE-CONSIDER THIS ACTION
--- NOTE | 2018-10-06 10:43 | NUR ---
PT RESTING WITH EYES CLOSED - RESPIRATIONS REG RATE AND RHYTHM - CPOC
--- NOTE | 2018-10-06 12:00 | NUR ---
FAMILY IN ROOM WITH PATIENT - ANSWERED ALL QUESTIONS TO FAMILY AND PATIENT'S SATISFACTION - DISCUSSED POSSIBLE S/E OF RESPIRATORY FAILURE IF A PERSON TAKES A COMBINATION OPIATE, BENZO, AND/OR CANNABOIDS. VERBALIZED UNDERSTANDING - CPOC
--- NOTE | 2018-10-06 12:55 | NUR ---
FAMILY REQESUTED NICOTINE PATCH - CPOC
--- NOTE | 2018-10-06 13:25 | NUR ---
PATIENT RESTING IN BED - ONLEFT SIDE WITH EYES CLOSED - RESPIRATIONS REG RATE AND RHYTHM - CPOC
--- NOTE | 2018-10-06 16:00 | NUR ---
I&O COMPLETE - PLACED PT ON BEDPAN - NO URINE/BOWEL MOVEMENT - CPOC
--- NOTE | 2018-10-06 17:55 | NUR ---
INFORMED SPOUSE PT DOES NOT HAVE A ROOM SCHEDULED YET - SPOUSE VERBALIZED UNDERSTANDING.
--- NOTE | 2018-10-06 19:00 | NUR ---
RECEIVED PATIENT CARE - SHIFT ASSESSMENT COMPLETED SEE FLOWSHEET
--- NOTE | 2018-10-06 19:39 | NUR ---
PT REQUESTED BEDPAN
--- NOTE | 2018-10-06 19:45 | NUR ---
800 CC URINE OUT IN BEDPAN - FULL LINEN CHANGE AND PARTIAL BATH GIVEN. VSS PATIENT REQUESTING PAIN MEDICATION. EDUCATION PROVIDED REGARDING MEDICATIONS. VSS CPOC
--- NOTE | 2018-10-06 21:00 | NUR ---
PT RECEIVED HS MEDS - DENIES NEEDS WILL CONTINUE TO MONITOR
--- NOTE | 2018-10-06 23:10 | NUR ---
PT RESTING COMFORTABLY EYES CLOSED, EVEN RISE AND FALL OF CHEST. VSS CPOC
--- NOTE | 2018-10-07 01:31 | NUR ---
PATIENT ASLEEP, EASILY ROUSED, DENIES NEEDS VSS CPOC
[2018-10-07 03:00] VITALS: BP 123/88
--- NOTE | 2018-10-07 03:11 | NUR ---
PT RESTING COMFORTABLY
[2018-10-07 04:22] LABS: BASOPHILS 0.2 % (0-2); EOSINOPHILS 1.2 % (0-7); HEMATOCRIT 39.4 % (36.0-48.0); HEMOGLOBIN 12.8 g/dL (12-16); IMMATURE GRANULOCYTES 0.3 % (0-5); LYMPHOCYTES 50.9 % (15-50); MCH 32.1 pg (26.0-34.0); MCHC 32.5 g/dL (31.0-37.0); MCV 98.7 fL (80.0-100.0); MEAN PLATELET VOLUME 10.5 fL (7.4-10.4); MONOCYTES 7.6 % (2-11); NEUTROPHILS 39.8 % (40-80); PLATELET COUNT 185 10x3/uL (130-400); RBC 3.99 10x6/uL (4.00-5.40); RDW 13.6 % (11.5-14.5)
[2018-10-07 04:26] LABS: WBC 6.5 10x3/uL (4.8-10.8)
[2018-10-07 04:40] LABS: CALC OSMOLALITY 283 mosm/kg (275-300); CALCIUM 8.4 mg/dL (8.5-10.1); CHLORIDE - SERUM 106 mmol/L (98-107); CREATININE - SERUM 0.6 mg/dL (0.6-1.3); GLUCOSE 98 mg/dL (74-106); POTASSIUM - SERUM 3.7 mmol/L (3.5-5.1); SODIUM 143 mmol/L (136-145); UREA NITROGEN 11 mg/dL (7-18); eGFR NON AFRICAN AMERICAN > 90 mL/min (90-120)
--- NOTE | 2018-10-07 05:20 | NUR ---
PATIENT REQUESTING PAIN MEDICATION, NO ORDERS FOR PAIN MEDICATIONS AT THIS TIME. VSS CPOC
[2018-10-07 07:00] VITALS: BP 120/91
--- NOTE | 2018-10-07 07:30 | NUR ---
REPORT RECIEVED, SHIFT ASSESSMENT COMPLETE, PT IS ALERT AND ORIENTED, UPTO BSC WITH 400 DARK UOP, ALL PPP, VSS, CALL LIGHT IN REACH
--- NOTE | 2018-10-07 08:45 | NUR ---
UPDATE CALLED TO DR. GAYTAN AT THIS TIME, NO NEW ORDERS AT THIS TIME,
--- NOTE | 2018-10-07 09:48 | NUR ---
DR GAYTAN AT BEDSIDE PT DISCHARGED PER ORDERS. PT LEFT VIA WHEELCHAIR WITHOUT DIFFICULTY WITH FAMILY.
== END 2018-10-07 09:49 | disposition home or self-care (01) | DRG 917 ==
LOC: D.ER 19:42 → D.ICU 22:04
PROVIDERS: Family Medicine; Internal Medicine Nephrology; ADMIT Emergency Medicine; ATTEND Emergency Medicine
PROC: 05HY33Z Insertion of Infusion Device into Upper Vein, Percutaneous Approach (ICD-10-PCS; principal; 2018-10-05)
DX: T40.2X1A Poisoning by other opioids, accidental (unintentional), initial encounter (principal); J96.91 Respiratory failure, unspecified with hypoxia; J98.11 Atelectasis; T50.905A Adverse effect of unspecified drugs, medicaments and biological substances, initial encounter; I10 Essential (primary) hypertension; J44.9 Chronic obstructive pulmonary disease, unspecified; E03.9 Hypothyroidism, unspecified; K58.9 Irritable bowel syndrome, unspecified; G89.29 Other chronic pain; F17.200 Nicotine dependence, unspecified, uncomplicated; F41.8 Other specified anxiety disorders; F31.9 Bipolar disorder, unspecified; R41.82 Altered mental status, unspecified

== ENCOUNTER 2018-12-24 13:30 | Emergency (ER) | payer MEDICARE, MEDICAID ==
[~2018-12-24] VITALS: Ht 165.1 cm; Wt 82.7 kg
[~2018-12-24 13:30] MED LIST changes: +PERCOCET 10-321 EAC1 PO
[2018-12-24 13:40] VITALS: Ht 165.1 cm; Wt 82.7 kg
[2018-12-24 14:11] LABS: BASOPHILS 0.1 % (0-2); EOSINOPHILS 0.9 % (0-7); HEMATOCRIT 39.8 % (36.0-48.0); HEMOGLOBIN 13.8 g/dL (12-16); IMMATURE GRANULOCYTES 0.3 % (0-5); LYMPHOCYTES 41.1 % (15-50); MCH 32.6 pg (26.0-34.0); MCHC 34.7 g/dL (31.0-37.0); MCV 94.1 fL (80.0-100.0); MEAN PLATELET VOLUME 11.3 fL (7.4-10.4); MONOCYTES 7.5 % (2-11); NEUTROPHILS 50.1 % (40-80); PLATELET COUNT 206 10x3/uL (130-400); RBC 4.23 10x6/uL (4.00-5.40); RDW 13.1 % (11.5-14.5); WBC 10.6 10x3/uL (4.8-10.8)
[2018-12-24 14:26] LABS: ALBUMIN 3.7 g/dL (3.4-5.0); ALKALINE PHOSPHATASE 76 U/L (46-116); ALT (SGPT) 23 U/L (10-68); BILIRUBIN - TOTAL 0.12 mg/dL (0.2-1.3); CALC OSMOLALITY 279 mosm/kg (275-300); CALCIUM 8.8 mg/dL (8.5-10.1); CARBON DIOXIDE 26.6 mmol/L (21.0-32.0); CHLORIDE - SERUM 104 mmol/L (98-107); CREATININE - SERUM 0.6 mg/dL (0.6-1.3); GLUCOSE 145 mg/dL (74-106); POTASSIUM - SERUM 3.7 mmol/L (3.5-5.1); PROTEIN - SERUM 7.2 g/dL (6.4-8.2); SODIUM 140 mmol/L (136-145); UREA NITROGEN 7 mg/dL (7-18); eGFR NON AFRICAN AMERICAN > 90 mL/min (90-120)
[2018-12-24 14:29] LABS: AMYLASE - SERUM 41 U/L (25-115); LIPASE 153 U/L (73-393); TROPONIN-I 0.016 ng/mL (0.000-0.060); VALPROIC ACID (DEPAKOTE) 37.1 ug/mL (50.0-100.0)
[2018-12-24 14:43] LABS: APPEARANCE CLEAR (CLEAR); BILIRUBIN NEGATIVE (NEGATIVE); COLOR YELLOW (YELLOW); GLUCOSE NEGATIVE (NEGATIVE); KETONE NEGATIVE (NEGATIVE); NITRITE NEGATIVE (NEGATIVE); PROTEIN NEGATIVE (NEGATIVE); UROBILINOGEN NORMAL (NORMAL)
[2018-12-24 14:57] LABS: BACTERIA FEW /hpf (NONE SEEN); EPITHELIAL CELLS 0-5 /hpf (0-5); RED CELLS - URINE 0-5 /hpf (0-5); WHITE CELLS - URINE 0-5 /hpf (0-5)
[2018-12-24] MEDS ORDERED: MACROBID100 MG PO (16:17)
[2018-12-24] MEDS ORDERED: LEVSIN/ANASP0.125 MG PO (16:17)
[2018-12-24] MEDS ORDERED: KEFLEX500 MG PO (16:17)
[2018-12-24] MEDS ORDERED: FLORASTOR250 MG PO (16:18)
[2018-12-24] MEDS ORDERED: ZOFRAN ODT4 MG/UDTAB PO (16:18)
--- NOTE | 2018-12-24 16:24 | NUR ---
DR. ROBERTSON NOTIFIED AND REVIEWED PT'S BEHAVIOR AND ASSESSMENT RESULTS. PT IS A LOW RISK PER DR. ROBERTSON. DR. ROBERTSON STATED TO GIVE RESOURCES TO PT AT TIME OF DISCHARGE. NO FURTHER ORDERS AT THIS TIME. RESOURCES REVIEWED WITH PT AND SHE VERBALIZED UNDERSTANDING.
[2018-12-24 17:23] VITALS: BP 158/94
== END 2018-12-24 17:24 | disposition home or self-care (01) ==
LOC: D.ER 13:30
PROVIDERS: Family Medicine
DX: R55 Syncope and collapse (principal); R10.9 Unspecified abdominal pain; N39.0 Urinary tract infection, site not specified

== ENCOUNTER 2018-12-27 14:55 | Emergency (ER) | payer MEDICARE, MEDICAID ==
[~2018-12-27] VITALS: Ht 165.1 cm; Wt 82.7 kg
[~2018-12-27 14:55] MED LIST changes: +FLORASTOR250 MG PO; +KEFLEX500 MG PO; +LEVSIN/ANASP0.125 MG PO; +MACROBID100 MG PO
[2018-12-27 15:04] VITALS: BP 169/107; Ht 165.1 cm; Wt 82.7 kg
[2018-12-27 15:41] LABS: BASOPHILS 0.1 % (0-2); EOSINOPHILS 0.9 % (0-7); HEMATOCRIT 40.9 % (36.0-48.0); HEMOGLOBIN 14.1 g/dL (12-16); IMMATURE GRANULOCYTES 0.5 % (0-5); LYMPHOCYTES 41.7 % (15-50); MCH 32.8 pg (26.0-34.0); MCHC 34.5 g/dL (31.0-37.0); MCV 95.1 fL (80.0-100.0); MEAN PLATELET VOLUME 11.5 fL (7.4-10.4); MONOCYTES 6.4 % (2-11); NEUTROPHILS 50.4 % (40-80); PLATELET COUNT 215 10x3/uL (130-400); WBC 7.7 10x3/uL (4.8-10.8)
[2018-12-27 15:57] LABS: APPEARANCE CLEAR (CLEAR); COLOR YELLOW (YELLOW)
[2018-12-27 15:57] LABS: ALBUMIN 3.6 g/dL (3.4-5.0); ALKALINE PHOSPHATASE 61 U/L (46-116); ALT (SGPT) 19 U/L (10-68); BILIRUBIN - TOTAL 0.29 mg/dL (0.2-1.3); CALC OSMOLALITY 273 mosm/kg (275-300); CALCIUM 9.1 mg/dL (8.5-10.1); CARBON DIOXIDE 25.7 mmol/L (21.0-32.0); CHLORIDE - SERUM 99 mmol/L (98-107); CREATININE - SERUM 0.7 mg/dL (0.6-1.3); GLUCOSE 140 mg/dL (74-106); POTASSIUM - SERUM 3.3 mmol/L (3.5-5.1); PROTEIN - SERUM 7.4 g/dL (6.4-8.2); SODIUM 137 mmol/L (136-145); UREA NITROGEN 6 mg/dL (7-18); eGFR NON AFRICAN AMERICAN > 90 mL/min (90-120)
[2018-12-27 15:58] LABS: BILIRUBIN NEGATIVE (NEGATIVE); GLUCOSE NEGATIVE (NEGATIVE); KETONE NEGATIVE (NEGATIVE); NITRITE NEGATIVE (NEGATIVE); PROTEIN NEGATIVE (NEGATIVE); UROBILINOGEN NORMAL (NORMAL)
[2018-12-27] MEDS ORDERED: CIPRO250 MG PO (16:47)
[2018-12-27] MEDS ORDERED: OMEPRAZOLE40 MG PO (16:47)
--- NOTE | 2018-12-27 17:16 | NUR ---
THIS NURSE WENT TO ASSESS FOR SUICIDE RISK ASSESSMENT. PATIENT NOT AVAILABLE AT THIS TIME TO COMPLETE SCREENING. FACE SHEET COLLECTED.
== END 2018-12-27 17:00 | disposition home or self-care (01) ==
LOC: D.ER 14:55
PROVIDERS: Family Medicine
DX: K29.70 Gastritis, unspecified, without bleeding (principal); R11.2 Nausea with vomiting, unspecified; N39.0 Urinary tract infection, site not specified

== ENCOUNTER 2019-05-13 21:09 | Inpatient (IN) | payer MEDICARE, MEDICAID ==
[~2019-05-13] VITALS: Ht 165.1 cm; Wt 82.0 kg
[2019-05-13] VITALS (10 sets, daily range): BP systolic 135–244; BP diastolic 78–132
[~2019-05-13 21:09] MED LIST changes: +CIPRO250 MG PO; +OMEPRAZOLE40 MG PO
[2019-05-13] MEDS ORDERED: REQUIP0.25 MG PO (21:40)
[2019-05-13] MEDS ORDERED: BACLOFEN20 M1 PO (21:41)
[2019-05-13] MEDS ORDERED: NEURONTIN 300300 MG PO (21:41)
[2019-05-13] MEDS ORDERED: ATIVAN2 MG (21:42)
[2019-05-13] MEDS ORDERED: SEROQUEL300 MG (21:43)
[2019-05-13] MEDS ORDERED: SYNTHROID125 MCG PO (21:45)
[2019-05-13] MEDS ORDERED: HYDROCODON-ACE1 EA10 PO (21:45)
[2019-05-13 22:04] LABS: BASOPHILS 0 % (0-2); EOSINOPHILS 0.5 % (0-7); HEMATOCRIT 38.4 % (36.0-48.0); HEMOGLOBIN 12.2 g/dL (12-16); IMMATURE GRANULOCYTES 0.7 % (0-5); LYMPHOCYTES 38.8 % (15-50); MCH 32.2 pg (26.0-34.0); MCHC 31.8 g/dL (31.0-37.0); MCV 101.3 fL (80.0-100.0); MEAN PLATELET VOLUME 11.9 fL (7.4-10.4); MONOCYTES 9.7 % (2-11); NEUTROPHILS 50.3 % (40-80); PLATELET COUNT 175 10x3/uL (130-400); RBC 3.79 10x6/uL (4.00-5.40); RDW 13.7 % (11.5-14.5); WBC 8.6 10x3/uL (4.8-10.8)
[2019-05-13 22:17] LABS: ANION GAP 9.8 mmol/L (8-16); BILIRUBIN - TOTAL 0.27 mg/dL (0.2-1.3); CALCIUM 8.3 mg/dL (8.5-10.1); CARBON DIOXIDE 31.6 mmol/L (21.0-32.0); POTASSIUM - SERUM 3.4 mmol/L (3.5-5.1); PROTEIN - SERUM 6.5 g/dL (6.4-8.2)
[2019-05-13 22:20] LABS: MAGNESIUM - SERUM 2.1 mg/dL (1.8-2.4); VALPROIC ACID (DEPAKOTE) 60.4 ug/mL (50.0-100.0)
[2019-05-13 22:22] LABS: APPEARANCE CLEAR (CLEAR); COLOR YELLOW (YELLOW)
[2019-05-13 22:23] LABS: BACTERIA FEW /hpf (NEGATIVE); BILIRUBIN NEGATIVE (NEGATIVE); GLUCOSE NEGATIVE (NEGATIVE); KETONE SMALL mg/dL (NEGATIVE); MUCUS <1+ /lpf (NONE SEEN); NITRITE NEGATIVE (NEGATIVE); PROTEIN TRACE mg/dL (NEGATIVE); RED CELLS - URINE OCC /hpf (0-5); UROBILINOGEN NORMAL (NORMAL); WHITE CELLS - URINE 0-5 /hpf (NEGATIVE)
[2019-05-13 22:24] LABS: HCG URINE NEGATIVE (NEGATIVE)
[2019-05-13 22:25] LABS: UDS - AMPHET NEGATIVE QUAL (NEGATIVE); UDS - BARB NEGATIVE QUAL (NEGATIVE); UDS - BENZO POSITIVE QUAL (NEGATIVE); UDS - COCAINE NEGATIVE QUAL (NEGATIVE); UDS - OPIATE POSITIVE QUAL (NEGATIVE); UDS - PCP NEGATIVE QUAL (NEGATIVE); UDS - THC POSITIVE QUAL (NEGATIVE)
[2019-05-14] VITALS (97 sets, daily range): BP systolic 118–205; BP diastolic 68–135; Ht 165.1 cm; Wt 82.0 kg
[2019-05-14 04:27] LABS: BASOPHILS 0 % (0-2); EOSINOPHILS 0.4 % (0-7); HEMATOCRIT 41.2 % (36.0-48.0); HEMOGLOBIN 13.3 g/dL (12-16); IMMATURE GRANULOCYTES 0.5 % (0-5); LYMPHOCYTES 28.3 % (15-50); MCH 32.4 pg (26.0-34.0); MCHC 32.3 g/dL (31.0-37.0); MCV 100.5 fL (80.0-100.0); MONOCYTES 12.3 % (2-11); NEUTROPHILS 58.5 % (40-80); PLATELET COUNT 175 10x3/uL (130-400); RDW 13.6 % (11.5-14.5)
[2019-05-14 04:29] LABS: WBC 11.1 10x3/uL (4.8-10.8)
[2019-05-14 04:54] LABS: ALBUMIN 3.1 g/dL (3.4-5.0); ALKALINE PHOSPHATASE 66 U/L (46-116); ALT (SGPT) 21 U/L (10-68); BILIRUBIN - TOTAL 0.45 mg/dL (0.2-1.3); CALC OSMOLALITY 289 mosm/kg (275-300); CALCIUM 8.8 mg/dL (8.5-10.1); CARBON DIOXIDE 29.3 mmol/L (21.0-32.0); CHLORIDE - SERUM 106 mmol/L (98-107); GLUCOSE 130 mg/dL (74-106); MAGNESIUM - SERUM 2.1 mg/dL (1.8-2.4); PHOSPHOROUS 3.6 mg/dL (2.5-4.9); POTASSIUM - SERUM 3.5 mmol/L (3.5-5.1); PROTEIN - SERUM 6.5 g/dL (6.4-8.2); SODIUM 145 mmol/L (136-145); UREA NITROGEN 9 mg/dL (7-18)
[2019-05-14 04:57] LABS: CREATININE - SERUM 0.7 mg/dL (0.6-1.3); eGFR NON AFRICAN AMERICAN > 90 mL/min (90-120)
--- NOTE | 2019-05-14 18:59 | MORECARE ---
CASE MANAGEMENT DISCHARGE SUMMARY PATIENT: RAFIA RANDHAWA UNIT: [id number] ADM DATE: 05/14/19 AGE: 53 : 63 SEX: F ROOM/BED: D.2306 AUTHOR: KATHERINE GROSSMAN PHYSICIAN: REFERRING PHYSICIAN: ANTOINE CRANDALL MD DATE OF SERVICE: 05/14/19 Discharge Plan Patient Name: RAFIA RANDHAWA Facility: [facility]:[place] : 1965 Planned Disposition: Anticipated Discharge Date: Discharge Date: Expected LOS: Initial Reviewer: [email or web address] Initial Review Date: 05/14/2019 Generated: 05/14/19 7:58 pm Patient Name: RAFIA RANDHAWA Page [id number] at 1859 All edits/amendments must be made on the electronic document DICTATION DATE: 05/14/191857 AUTOMATIC BOW MAKER MACHINE TENDER: APOLLO 05/14/191857 RPT#: [id number] DC DATE: STATUS: ADM IN [facility] [address] [place] [address] END OF REPORT
--- NOTE | 2019-05-14 19:06 | MORECARE ---
CASE MANAGEMENT DISCHARGE SUMMARY PATIENT: RAFIA RANDHAWA UNIT: [id number] ADM DATE: 05/14/19 AGE: 53 : 63 SEX: F ROOM/BED: D.2306 AUTHOR: KATHERINE GROSSMAN PHYSICIAN: REFERRING PHYSICIAN: ANTOINE CRANDALL MD DATE OF SERVICE: 05/14/19 Discharge Plan Patient Name: RAFIA RANDHAWA [facility] [facility] 1965 Planned Disposition: Anticipated Discharge Date: Discharge Date: Expected LOS: Initial Reviewer: [email or web address] Initial Review Date: 05/14/2019 Generated: 05/14/19 8:06 pm Comments DCP- Discharge Planning Updated by [email or web address]: Bruna Henriquez on 05/14/19 5:[address] CM attempted to meet with patient regarding discharge planning. Patient is currently on vent sedated and no family available at this time. CM will continue to follow and assist as needed with discharge planning / needs. Last DP export: 05/14/19 5:59 Patient Name: RAFIA RANDHAWA Page [phone] at 1906 All edits/amendments must be made on the electronic document DICTATION DATE: 05/14/191905 PRODUCT BLENDING SUPERVISOR: APOLLO 05/14/191905 RPT#: [id number] DC DATE: STATUS: ADM IN [facility] [address] [place] [address] END OF REPORT
[2019-05-15] VITALS (82 sets, daily range): BP systolic 82–163; BP diastolic 44–112
[2019-05-15 04:18] LABS: BASOPHILS 0.1 % (0-2); EOSINOPHILS 0.1 % (0-7); HEMATOCRIT 36.9 % (36.0-48.0); HEMOGLOBIN 12.3 g/dL (12-16); IMMATURE GRANULOCYTES 0.7 % (0-5); LYMPHOCYTES 21.3 % (15-50); MCH 32.5 pg (26.0-34.0); MCHC 33.3 g/dL (31.0-37.0); MEAN PLATELET VOLUME 11.9 fL (7.4-10.4); MONOCYTES 15.2 % (2-11); NEUTROPHILS 62.6 % (40-80); PLATELET COUNT 194 10x3/uL (130-400); RBC 3.78 10x6/uL (4.00-5.40); RDW 13.8 % (11.5-14.5)
[2019-05-15 04:23] LABS: MCV 97.6 fL (80.0-100.0); WBC 14.1 10x3/uL (4.8-10.8)
[2019-05-15 04:43] LABS: ALBUMIN 2.7 g/dL (3.4-5.0); ALKALINE PHOSPHATASE 61 U/L (46-116); ALT (SGPT) 19 U/L (10-68); BILIRUBIN - TOTAL 0.68 mg/dL (0.2-1.3); CALCIUM 7.9 mg/dL (8.5-10.1); CARBON DIOXIDE 22.1 mmol/L (21.0-32.0); CHLORIDE - SERUM 107 mmol/L (98-107); CREATININE - SERUM 0.6 mg/dL (0.6-1.3); GLUCOSE 171 mg/dL (74-106); MAGNESIUM - SERUM 1.7 mg/dL (1.8-2.4); PHOSPHOROUS 2.7 mg/dL (2.5-4.9); PROTEIN - SERUM 6.3 g/dL (6.4-8.2); SODIUM 142 mmol/L (136-145); eGFR NON AFRICAN AMERICAN > 90 mL/min (90-120)
[2019-05-15 04:55] LABS: CALC OSMOLALITY 284 mosm/kg (275-300); POTASSIUM - SERUM 3.1 mmol/L (3.5-5.1); UREA NITROGEN 6 mg/dL (7-18)
[2019-05-15 10:51] LABS: CALC OSMOLALITY 286 mosm/kg (275-300); CARBON DIOXIDE 24.2 mmol/L (21.0-32.0); CHLORIDE - SERUM 108 mmol/L (98-107); CREATININE - SERUM 0.6 mg/dL (0.6-1.3); GLUCOSE 190 mg/dL (74-106); POTASSIUM - SERUM 3.2 mmol/L (3.5-5.1); SODIUM 143 mmol/L (136-145); UREA NITROGEN 5 mg/dL (7-18); eGFR NON AFRICAN AMERICAN > 90 mL/min (90-120)
--- NOTE | 2019-05-15 18:24 | MORECARE ---
CASE MANAGEMENT DISCHARGE SUMMARY PATIENT: RAFIA RANDHAWA UNIT: [id number] ADM DATE: 05/14/19 AGE: 53 : 63 SEX: F ROOM/BED: D.2306 AUTHOR: KATHERINE GROSSMAN PHYSICIAN: REFERRING PHYSICIAN: ANTOINE CRANDALL MD DATE OF SERVICE: 05/15/19 Discharge Plan Patient Name: RAFIA RANDHAWA [facility] [facility] 1965 Planned Disposition: Anticipated Discharge Date: Discharge Date: Expected LOS: Initial Reviewer: [email or web address] Initial Review Date: 05/14/2019 Generated: 05/15/19 7:23 pm Comments DCP- Discharge Planning Updated by [email or web address]: Bruna Henriquez on 05/14/19 5:[address] CM attempted to meet with patient regarding discharge planning. Patient is currently on vent sedated and no family available at this time. CM will continue to follow and assist as needed with discharge planning / needs. Last DP export: 05/14/19 6:07 Patient Name: RAFIA RANDHAWA Page [phone] at 1824 All edits/amendments must be made on the electronic document DICTATION DATE: 05/15/191822 IMMIGRATION OFFICER: APOLLO 05/15/191822 RPT#: [id number] DC DATE: STATUS: ADM IN [facility] [address] [place] [address] END OF REPORT
--- NOTE | 2019-05-15 18:41 | MORECARE ---
CASE MANAGEMENT DISCHARGE SUMMARY PATIENT: RAFIA RANDHAWA UNIT: [id number] ADM DATE: 05/14/19 AGE: 53 : 63 SEX: F ROOM/BED: D.2306 AUTHOR: KATHERINE GROSSMAN PHYSICIAN: REFERRING PHYSICIAN: ANTOINE CRANDALL MD DATE OF SERVICE: 05/15/19 Discharge Plan Patient Name: RAFIA RANDHAWA Facility: [facility]:[place] : 1965 Planned Disposition: Anticipated Discharge Date: Discharge Date: Expected LOS: Initial Reviewer: [email or web address] Initial Review Date: 05/14/2019 Generated: 05/15/19 7:40 pm Comments DCP- Discharge Planning Updated by [email or web address]: Bruna Henriquez on 05/14/19 5:[address] CM attempted to meet with patient regarding discharge planning. Patient is currently on vent sedated and no family available at this time. CM will continue to follow and assist as needed with discharge planning / needs. DCPIA - Discharge Planning Initial Assessment Updated by [email or web address]: Bruna Henriquez on 05/15/19 6:38 pm * Is the patient Alert and Oriented? Yes * How many steps to enter\exit or inside your home? * PCP LOJA * Pharmacy [facility] * Preadmission Environment Home with Family * ADLs Independent * Other Equipment WALKER * List name and contact numbers for known caregivers / representatives who currently or will assist patient after discharge: CRISTINA RANDHAWA - [facility] - [phone] * Verbal permission to speak to the caregivers and representatives has been obtained from the patient. Yes * Community resources currently utilized None * Additional services required to return to the preadmission environment? No * Can the patient safely return to the preadmission environment? Yes * Has this patient been hospitalized within the prior 30 days at any hospital? No Last DP export: 05/15/19 5:24 Patient Name: RAFIA RANDHAWA Page [phone] at 1841 All edits/amendments must be made on the electronic document DICTATION DATE: 05/15/191839 RADIO INTELLIGENCE OPERATOR: APOLLO 05/15/191839 RPT#: [id number] DC DATE: STATUS: ADM IN [facility] [address] [place] [address] END OF REPORT
--- NOTE | 2019-05-15 18:47 | MORECARE ---
CASE MANAGEMENT DISCHARGE SUMMARY PATIENT: RAFIA RANDHAWA UNIT: [id number] ADM DATE: 05/14/19 AGE: 53 : 63 SEX: F ROOM/BED: D.2306 AUTHOR: CHAUNCEY,DOC PHYSICIAN: REFERRING PHYSICIAN: ANTOINE CRANDALL MD DATE OF SERVICE: 05/15/19 Discharge Plan Patient Name: RAFIA RANDHAWA Facility: [facility]:[place] : 1965 Planned Disposition: Anticipated Discharge Date: Discharge Date: Expected LOS: Initial Reviewer: [email or web address] Initial Review Date: 05/14/2019 Generated: 05/15/19 7:47 pm Comments DCP- Discharge Planning Updated by [email or web address]: Bruna Henriquez on 05/15/19 5:[address] Patient Name: RAFIA RANDHAWA Admission Status: ER Accout number: [id number] Admission Date: 05-14-2019 : 1965 Admission Diagnosis: Attending: ANTOINE CRANDALL Current LOS: 1 Anticipated DC Date: Planned Disposition: Primary Insurance: [facility] [employer] Discharge Planning Comments: CM met with patient and spouse (Anup) to complete initial dc planning assessment. CM educated patient on the CM role and verbal consent given by patient to complete assessment. Patient lives at home with her where she is independent with her care. At discharge patient plans to return home and feels this is a safe discharge. CM discussed availability of home health, rehab services, and medical equipment. Spouse states that she has been in [facility] psych unit recently but uncertain of dates. Her will drive her home upon discharge. Patient denied known discharge needs at this time. CM will continue to follow and will assist as needed with dc plans/needs. Humanities Division Chair: Bruna Henriquez DCP- Discharge Planning Updated by [email or web address]: Bruna Henriquez on 05/14/19 5:[address] CM attempted to meet with patient regarding discharge planning. Patient is currently on vent sedated and no family available at this time. CM will continue to follow and assist as needed with discharge planning / needs. DCPIA - Discharge Planning Initial Assessment Updated by [email or web address]: Bruna Henriquez on 05/15/19 6:38 pm * Is the patient Alert and Oriented? Yes * How many steps to enter\exit or inside your home? * PCP LOJA * Pharmacy [facility] * Preadmission Environment Home with Family * ADLs Independent * Other Equipment WALKER * List name and contact numbers for known caregivers / representatives who currently or will assist patient after discharge: ANUP RANDHAWA - SPOUSE - [phone] * Verbal permission to speak to the caregivers and representatives has been obtained from the patient. Yes * Community resources currently utilized None * Additional services required to return to the preadmission environment? No * Can the patient safely return to the preadmission environment? Yes * Has this patient been hospitalized within the prior 30 days at any hospital? No Last DP export: 05/15/19 5:40 Patient Name: RAFIA RANDHAWA Page [id number] at 1847 All edits/amendments must be made on the electronic document DICTATION DATE: 05/15/191846 CARTON MACHINE OPERATOR: APOLLO 05/15/191846 RPT#: [id number] DC DATE: STATUS: ADM IN [facility] [address] [place] [address] END OF REPORT
[2019-05-16] VITALS (16 sets, daily range): BP systolic 128–159; BP diastolic 79–97
[2019-05-16 05:40] LABS: BASOPHILS 0.1 % (0-2); EOSINOPHILS 0.1 % (0-7); HEMOGLOBIN 12.3 g/dL (12-16); IMMATURE GRANULOCYTES 0.8 % (0-5); LYMPHOCYTES 18.3 % (15-50); MCH 32.8 pg (26.0-34.0); MCHC 33.2 g/dL (31.0-37.0); MCV 98.7 fL (80.0-100.0); MEAN PLATELET VOLUME 11.6 fL (7.4-10.4); NEUTROPHILS 69.7 % (40-80); PLATELET COUNT 184 10x3/uL (130-400); RBC 3.75 10x6/uL (4.00-5.40); RDW 13.8 % (11.5-14.5); WBC 14.6 10x3/uL (4.8-10.8)
[2019-05-16 06:31] LABS: ALBUMIN 2.6 g/dL (3.4-5.0); ALKALINE PHOSPHATASE 73 U/L (46-116); ALT (SGPT) 26 U/L (10-68); BILIRUBIN - TOTAL 0.91 mg/dL (0.2-1.3); CALC OSMOLALITY 286 mosm/kg (275-300); CALCIUM 8.3 mg/dL (8.5-10.1); CARBON DIOXIDE 25.4 mmol/L (21.0-32.0); CHLORIDE - SERUM 107 mmol/L (98-107); CREATININE - SERUM 0.6 mg/dL (0.6-1.3); GLUCOSE 122 mg/dL (74-106); MAGNESIUM - SERUM 2.2 mg/dL (1.8-2.4); PHOSPHOROUS 3.6 mg/dL (2.5-4.9); POTASSIUM - SERUM 3.1 mmol/L (3.5-5.1); PROTEIN - SERUM 6.4 g/dL (6.4-8.2); SODIUM 145 mmol/L (136-145); UREA NITROGEN 5 mg/dL (7-18); eGFR NON AFRICAN AMERICAN > 90 mL/min (90-120)
[2019-05-17 00:05] VITALS: BP 168/90
[2019-05-17 04:00] VITALS: BP 159/110
[2019-05-17 06:20] LABS: BASOPHILS 0.2 % (0-2); EOSINOPHILS 0.4 % (0-7); HEMATOCRIT 35.6 % (36.0-48.0); HEMOGLOBIN 11.8 g/dL (12-16); IMMATURE GRANULOCYTES 1.4 % (0-5); LYMPHOCYTES 24.6 % (15-50); MCH 32.6 pg (26.0-34.0); MCHC 33.1 g/dL (31.0-37.0); MCV 98.3 fL (80.0-100.0); MONOCYTES 12.2 % (2-11); NEUTROPHILS 61.2 % (40-80); PLATELET COUNT 216 10x3/uL (130-400); RBC 3.62 10x6/uL (4.00-5.40); RDW 13.5 % (11.5-14.5); WBC 11.4 10x3/uL (4.8-10.8)
[2019-05-17 06:38] LABS: ALBUMIN 2.5 g/dL (3.4-5.0); ALKALINE PHOSPHATASE 100 U/L (46-116); BILIRUBIN - TOTAL 0.68 mg/dL (0.2-1.3); CALC OSMOLALITY 280 mosm/kg (275-300); CALCIUM 8.7 mg/dL (8.5-10.1); CARBON DIOXIDE 26.1 mmol/L (21.0-32.0); CHLORIDE - SERUM 106 mmol/L (98-107); CREATININE - SERUM 0.5 mg/dL (0.6-1.3); GLUCOSE 138 mg/dL (74-106); MAGNESIUM - SERUM 2.2 mg/dL (1.8-2.4); PHOSPHOROUS 2.7 mg/dL (2.5-4.9); PROTEIN - SERUM 7.2 g/dL (6.4-8.2); SODIUM 141 mmol/L (136-145); UREA NITROGEN 7 mg/dL (7-18); eGFR NON AFRICAN AMERICAN > 90 mL/min (90-120)
[2019-05-17 06:39] LABS: ALT (SGPT) 44 U/L (10-68); POTASSIUM - SERUM 2.7 mmol/L (3.5-5.1)
[2019-05-17 07:42] VITALS: BP 176/102
[2019-05-17 19:55] VITALS: BP 188/90
[2019-05-18 05:04] VITALS: BP 152/67
[2019-05-18 07:09] LABS: BASOPHILS 0.6 % (0-2); EOSINOPHILS 0.7 % (0-7); IMMATURE GRANULOCYTES 2.4 % (0-5); LYMPHOCYTES 30.8 % (15-50); MCH 31.9 pg (26.0-34.0); MCHC 31.6 g/dL (31.0-37.0); MCV 101.1 fL (80.0-100.0); MEAN PLATELET VOLUME 11.5 fL (7.4-10.4); NEUTROPHILS 53.5 % (40-80); PLATELET COUNT 186 10x3/uL (130-400); RBC 3.76 10x6/uL (4.00-5.40); RDW 13.7 % (11.5-14.5); WBC 8.7 10x3/uL (4.8-10.8)
[2019-05-18 07:12] LABS: ALBUMIN 2.3 g/dL (3.4-5.0); ALKALINE PHOSPHATASE 90 U/L (46-116); ALT (SGPT) 48 U/L (10-68); BILIRUBIN - TOTAL 0.46 mg/dL (0.2-1.3); CALC OSMOLALITY 273 mosm/kg (275-300); CALCIUM 8.6 mg/dL (8.5-10.1); CARBON DIOXIDE 23.5 mmol/L (21.0-32.0); CHLORIDE - SERUM 104 mmol/L (98-107); CREATININE - SERUM 0.5 mg/dL (0.6-1.3); GLUCOSE 137 mg/dL (74-106); MAGNESIUM - SERUM 2.2 mg/dL (1.8-2.4); SODIUM 137 mmol/L (136-145); UREA NITROGEN 7 mg/dL (7-18); eGFR NON AFRICAN AMERICAN > 90 mL/min (90-120)
[2019-05-18 07:13] LABS: PHOSPHOROUS 3.8 mg/dL (2.5-4.9); POTASSIUM - SERUM 3.4 mmol/L (3.5-5.1)
[2019-05-18 08:47] VITALS: BP 169/91
[2019-05-18] MEDS ORDERED: GABAPENTIN100 MG PO (12:03)
[2019-05-18] MEDS ORDERED: MELATONIN 3 MG1 TAB PO (12:07)
--- NOTE | 2019-05-20 17:43 | MORECARE ---
CASE MANAGEMENT DISCHARGE SUMMARY PATIENT: RAFIA RANDHAWA UNIT: [id number] ADM DATE: 05/14/19 AGE: 53 : 63 SEX: F ROOM/BED: D.1204 AUTHOR: KATHERINE GROSSMAN PHYSICIAN: REFERRING PHYSICIAN: ANTOINE CRANDALL MD DATE OF SERVICE: 05/20/19 Discharge Plan Patient Name: RAFIA RANDHAWA Facility: [facility]:[place] : 1965 Planned Disposition: Anticipated Discharge Date: Discharge Date: 05/18/2019 Expected LOS: Initial Reviewer: [email or web address] Initial Review Date: 05/14/2019 Generated: 05/20/19 6:42 pm Comments DCP- Discharge Planning Updated by [email or web address]: Bruna Henriquez on 05/15/19 5:[address] Patient Name: RAFIA RANDHAWA Admission Status: ER Accout number: [id number] Admission Date: 05-14-2019 : 1965 Admission Diagnosis: Attending: ANTOINE CRANDALL Current LOS: 1 Anticipated DC Date: Planned Disposition: Primary Insurance: [facility] MEDICARE SOLUTIONS Discharge Planning Comments: CM met with patient and spouse (Anup) to complete initial dc planning assessment. CM educated patient on the CM role and verbal consent given by patient to complete assessment. Patient lives at home with her where she is independent with her care. At discharge patient plans to return home and feels this is a safe discharge. CM discussed availability of home health, rehab services, and medical equipment. Spouse states that she has been in [facility] psych unit recently but uncertain of dates. Her will drive her home upon discharge. Patient denied known discharge needs at this time. CM will continue to follow and will assist as needed with dc plans/needs. Ssis Developer: Bruna Henriquez DCP- Discharge Planning Updated by [email or web address]: Bruna Henriquez on 05/14/19 5:[address] CM attempted to meet with patient regarding discharge planning. Patient is currently on vent sedated and no family available at this time. CM will continue to follow and assist as needed with discharge planning / needs. DCPIA - Discharge Planning Initial Assessment Updated by [email or web address]: Bruna Henriquez on 05/15/19 6:38 pm * Is the patient Alert and Oriented? Yes * How many steps to enter\exit or inside your home? * PCP LOJA * Pharmacy [facility] * Preadmission Environment Home with Family * ADLs Independent * Other Equipment WALKER * List name and contact numbers for known caregivers / representatives who currently or will assist patient after discharge: ANUP RANDHAWA - [facility] - [phone] * Verbal permission to speak to the caregivers and representatives has been obtained from the patient. Yes * Community resources currently utilized None * Additional services required to return to the preadmission environment? No * Can the patient safely return to the preadmission environment? Yes * Has this patient been hospitalized within the prior 30 days at any hospital? No Last DP export: 05/15/19 5:47 Patient Name: RAFIA RANDHAWA Page [id number] at 1743 All edits/amendments must be made on the electronic document DICTATION DATE: 05/20/191741 STITCH WELDER: APOLLO 05/20/191741 RPT#: [id number] DC DATE:05/18/19 STATUS: DIS IN [facility] [address] [place] [address] END OF REPORT
== END 2019-05-18 13:28 | disposition home or self-care (01) | DRG 917 ==
LOC: D.ER 21:09 → D.M3 05-14 00:31 → D.ICU 05-14 00:31 → D.M3 05-16 14:56
PROVIDERS: Family Medicine; Internal Medicine Nephrology; ADMIT Emergency Medicine; ATTEND Emergency Medicine
PROC: 5A1945Z Respiratory Ventilation, 24-96 Consecutive Hours (ICD-10-PCS; principal; 2019-05-14)
PROC: 0BH17EZ Insertion of Endotracheal Airway into Trachea, Via Natural or Artificial Opening (ICD-10-PCS; 2019-05-14)
DX: T50.991A Poisoning by other drugs, medicaments and biological substances, accidental (unintentional), initial encounter (principal); G93.41 Metabolic encephalopathy; J96.00 Acute respiratory failure, unspecified whether with hypoxia or hypercapnia; I16.1 Hypertensive emergency; F17.200 Nicotine dependence, unspecified, uncomplicated; E03.9 Hypothyroidism, unspecified; E87.6 Hypokalemia; F19.10 Other psychoactive substance abuse, uncomplicated; E66.9 Obesity, unspecified; Z68.34 Body mass index [BMI] 34.0-34.9, adult

== ENCOUNTER 2019-08-14 17:31 | Emergency (ER) | payer MEDICARE ==
[~2019-08-14] VITALS: Ht 165.1 cm; Wt 100.9 kg
[~2019-08-14 17:31] MED LIST changes: +ATIVAN2 MG; +BACLOFEN20 M1 PO; +GABAPENTIN100 MG PO; +HYDROCODON-ACE1 EA10 PO; +MELATONIN 3 MG1 TAB PO; +NEURONTIN 300300 MG PO; +REQUIP0.25 MG PO; +SEROQUEL300 MG; +SYNTHROID125 MCG PO
[2019-08-14 18:07] VITALS: Ht 165.1 cm; Wt 100.9 kg
[2019-08-14 18:34] LABS: BASOPHILS 0.1 % (0-2); EOSINOPHILS 0 % (0-7); HEMATOCRIT 42.3 % (36.0-48.0); HEMOGLOBIN 14.2 g/dL (12-16); IMMATURE GRANULOCYTES 0.5 % (0-5); LYMPHOCYTES 13.9 % (15-50); MCH 33.1 pg (26.0-34.0); MCHC 33.6 g/dL (31.0-37.0); MCV 98.6 fL (80.0-100.0); MONOCYTES 14.9 % (2-11); NEUTROPHILS 70.6 % (40-80); RBC 4.29 10x6/uL (4.00-5.40); RDW 13.3 % (11.5-14.5); WBC 8.1 10x3/uL (4.8-10.8)
[2019-08-14 18:36] LABS: PLATELET COUNT 136 10x3/uL (130-400)
[2019-08-14 18:52] LABS: CALC OSMOLALITY 276 mosm/kg (275-300); CALCIUM 8.9 mg/dL (8.5-10.1); CARBON DIOXIDE 27.6 mmol/L (21.0-32.0); CHLORIDE - SERUM 102 mmol/L (98-107); CREATININE - SERUM 0.8 mg/dL (0.6-1.3); GLUCOSE 134 mg/dL (74-106); POTASSIUM - SERUM 3.6 mmol/L (3.5-5.1); SODIUM 138 mmol/L (136-145); UREA NITROGEN 10 mg/dL (7-18); eGFR NON AFRICAN AMERICAN 79 mL/min (90-120)
[2019-08-14 18:58] LABS: ALBUMIN 3.3 g/dL (3.4-5.0); ALKALINE PHOSPHATASE 74 U/L (46-116); ALT (SGPT) 28 U/L (10-68); BILIRUBIN - TOTAL 0.35 mg/dL (0.2-1.3); PROTEIN - SERUM 7.6 g/dL (6.4-8.2)
[2019-08-14 19:50] LABS: APPEARANCE HAZY (CLEAR); BILIRUBIN NEGATIVE (NEGATIVE); COLOR YELLOW (YELLOW); GLUCOSE NEGATIVE (NEGATIVE); KETONE MODERATE mg/dL (NEGATIVE); NITRITE NEGATIVE (NEGATIVE); PROTEIN 1+ mg/dL (NEGATIVE); SPECIFIC GRAVITY 1.015 (1.005-1.020); UROBILINOGEN NORMAL (NORMAL)
[2019-08-14 19:54] LABS: BACTERIA FEW /hpf (NEGATIVE); EPITHELIAL CELLS 0-5 /hpf (0-5); RED CELLS - URINE 0-5 /hpf (0-5); WHITE CELLS - URINE NSEEN /hpf (NEGATIVE)
[2019-08-14] MEDS ORDERED: TAMIFLU75 MG PO (21:22)
[2019-08-14] MEDS ORDERED: TALWIN NX1 TAB PO (21:22)
[2019-08-14] MEDS ORDERED: MUCINEX DM ER1 EAC1 PO (21:22)
[2019-08-14 21:35] VITALS: BP 170/96
== END 2019-08-14 21:35 | disposition home or self-care (01) ==
LOC: D.ER 17:31
PROVIDERS: Emergency Medicine
DX: J11.1 Influenza due to unidentified influenza virus with other respiratory manifestations (principal); R52 Pain, unspecified; R09.89 Other specified symptoms and signs involving the circulatory and respiratory systems; E07.9 Disorder of thyroid, unspecified; I10 Essential (primary) hypertension; Z72.0 Tobacco use

== ENCOUNTER 2019-08-20 17:48 | Emergency (ER) | payer MEDICARE ==
[2019-08-14 18:07] VITALS: BMI 37.0
[~2019-08-20 17:48] MED LIST changes: +MUCINEX DM ER1 EAC1 PO; +TALWIN NX1 TAB PO; +TAMIFLU75 MG PO
== END 2019-08-20 18:58 | disposition left against medical advice (07) ==
LOC: D.ER 17:48
DX: J11.1 Influenza due to unidentified influenza virus with other respiratory manifestations (principal)

== ENCOUNTER 2019-10-09 12:03 | Emergency (ER) | payer MEDICARE ==
[~2019-10-09] VITALS: Ht 165.1 cm; Wt 90.9 kg
[2019-10-09 12:09] VITALS: Ht 165.1 cm; Wt 90.9 kg
[2019-10-09] MEDS ORDERED: KLONOPIN1 MG PO (12:15)
[2019-10-09] MEDS ORDERED: SEROQUEL300 MG PO (12:19)
[2019-10-09 12:50] LABS: BASOPHILS 0.1 % (0-2); EOSINOPHILS 0.5 % (0-7); HEMATOCRIT 43.8 % (36.0-48.0); HEMOGLOBIN 14.8 g/dL (12-16); IMMATURE GRANULOCYTES 0.4 % (0-5); LYMPHOCYTES 30.8 % (15-50); MCHC 33.8 g/dL (31.0-37.0); MCV 97.8 fL (80.0-100.0); MEAN PLATELET VOLUME 11.7 fL (7.4-10.4); NEUTROPHILS 60.2 % (40-80); RBC 4.48 10x6/uL (4.00-5.40); RDW 13.4 % (11.5-14.5); WBC 13.9 10x3/uL (4.8-10.8)
[2019-10-09 12:53] LABS: BILIRUBIN NEGATIVE (NEGATIVE); GLUCOSE NEGATIVE (NEGATIVE); KETONE NEGATIVE (NEGATIVE); NITRITE NEGATIVE (NEGATIVE); UROBILINOGEN NORMAL (NORMAL)
[2019-10-09 12:53] LABS: PLATELET COUNT 230 10x3/uL (130-400)
[2019-10-09 12:59] LABS: CALC OSMOLALITY 279 mosm/kg (275-300); CALCIUM 9.5 mg/dL (8.5-10.1); CARBON DIOXIDE 25.1 mmol/L (21.0-32.0); CHLORIDE - SERUM 102 mmol/L (98-107); CREATININE - SERUM 0.8 mg/dL (0.6-1.3); GLUCOSE 139 mg/dL (74-106); POTASSIUM - SERUM 4.2 mmol/L (3.5-5.1); SODIUM 140 mmol/L (136-145); UREA NITROGEN 9 mg/dL (7-18); eGFR NON AFRICAN AMERICAN 79 mL/min (90-120)
[2019-10-09 13:07] LABS: APTT 36.7 SECONDS (22.8-39.4); INR 0.95 (0.85-1.17); PROTIME 12.6 SECONDS (11.6-15.0)
[2019-10-09 13:20] LABS: CREATINE KINASE 66 UL (21-215); PRO BNP 39 pg/mL (0-125)
[2019-10-09 13:20] LABS: ALBUMIN 3.8 g/dL (3.4-5.0); ALKALINE PHOSPHATASE 100 U/L (30-120); ALT (SGPT) 33 U/L (10-68); AMYLASE - SERUM 35 U/L (25-115); BILIRUBIN - TOTAL 0.38 mg/dL (0.2-1.3); LIPASE 140 U/L (73-393); PROTEIN - SERUM 7.8 g/dL (6.4-8.2); TROPONIN-I < 0.017 ng/mL (0.000-0.060)
[2019-10-09 15:07] VITALS: BP 150/96
== END 2019-10-09 15:44 | disposition home or self-care (01) ==
LOC: D.ER 12:03
PROVIDERS: Emergency Medicine
DX: R10.9 Unspecified abdominal pain (principal); E03.9 Hypothyroidism, unspecified; I10 Essential (primary) hypertension; J44.9 Chronic obstructive pulmonary disease, unspecified; Z72.0 Tobacco use; Z87.442 Personal history of urinary calculi; R11.0 Nausea

== ENCOUNTER 2019-11-04 13:55 | Emergency (ER) | payer MEDICARE ==
[~2019-11-04] VITALS: Ht 165.1 cm; Wt 90.9 kg
[2019-11-04 14:07] VITALS: Ht 165.1 cm; Wt 90.9 kg
[2019-11-04 14:25] LABS: BASOPHILS 0.2 % (0-2); EOSINOPHILS 0.6 % (0-7); HEMATOCRIT 43.8 % (36.0-48.0); HEMOGLOBIN 14.2 g/dL (12-16); IMMATURE GRANULOCYTES 0.4 % (0-5); LYMPHOCYTES 34.3 % (15-50); MCH 32.2 pg (26.0-34.0); MCHC 32.4 g/dL (31.0-37.0); MCV 99.3 fL (80.0-100.0); MEAN PLATELET VOLUME 11.9 fL (7.4-10.4); NEUTROPHILS 58.5 % (40-80); PLATELET COUNT 210 10x3/uL (130-400); RBC 4.41 10x6/uL (4.00-5.40); RDW 12.9 % (11.5-14.5); WBC 12.4 10x3/uL (4.8-10.8)
[2019-11-04 14:34] LABS: CALC OSMOLALITY 274 mosm/kg (275-300); CALCIUM 9.6 mg/dL (8.5-10.1); CHLORIDE - SERUM 101 mmol/L (98-107); CREATININE - SERUM 0.9 mg/dL (0.6-1.3); GLUCOSE 135 mg/dL (74-106); POTASSIUM - SERUM 3.5 mmol/L (3.5-5.1); SODIUM 137 mmol/L (136-145); UREA NITROGEN 9 mg/dL (7-18); eGFR NON AFRICAN AMERICAN 69 mL/min (90-120)
[2019-11-04 14:35] LABS: INR 0.91 (0.85-1.17); PROTIME 12.2 SECONDS (11.6-15.0)
[2019-11-04 14:52] LABS: ALBUMIN 3.7 g/dL (3.4-5.0); ALKALINE PHOSPHATASE 97 U/L (30-120); ALT (SGPT) 28 U/L (10-68); BILIRUBIN - TOTAL 0.35 mg/dL (0.2-1.3); CKMB 0.1 U/L (0.0-3.6); CREATINE KINASE 61 UL (21-215); PRO BNP 107 pg/mL (0-125); PROTEIN - SERUM 7.8 g/dL (6.4-8.2); TROPONIN-I < 0.017 ng/mL (0.000-0.060)
[2019-11-04] MEDS ORDERED: PROMETH-CODEIN 65 ML PO (16:08)
[2019-11-04] MEDS ORDERED: MUCINEX DM ER1 EAC1 PO (16:08)
[2019-11-04 16:59] VITALS: BP 141/97
== END 2019-11-04 16:59 | disposition home or self-care (01) ==
LOC: D.ER 13:55
PROVIDERS: Family Medicine
DX: R05 Cough (principal); R07.9 Chest pain, unspecified; F41.9 Anxiety disorder, unspecified; I10 Essential (primary) hypertension; M54.9 Dorsalgia, unspecified

== ENCOUNTER 2019-12-14 11:23 | Emergency (ER) | payer MEDICARE ==
[~2019-12-14] VITALS: Ht 165.1 cm; Wt 90.9 kg
[~2019-12-14 11:23] MED LIST changes: +PROMETH-CODEIN 65 ML PO
[2019-12-14 11:27] VITALS: Ht 165.1 cm; Wt 90.9 kg
[2019-12-14] MEDS ORDERED: AMBIEN10 MG PO (11:35)
[2019-12-14] MEDS ORDERED: GLUCOPHAGE500 MG PO (11:35)
[2019-12-14 11:50] LABS: BASOPHILS 0.1 % (0-2); EOSINOPHILS 0.2 % (0-7); HEMATOCRIT 43.6 % (36.0-48.0); HEMOGLOBIN 14.7 g/dL (12-16); IMMATURE GRANULOCYTES 0.7 % (0-5); LYMPHOCYTES 23.5 % (15-50); MCH 32.1 pg (26.0-34.0); MCHC 33.7 g/dL (31.0-37.0); MCV 95.2 fL (80.0-100.0); MEAN PLATELET VOLUME 11.2 fL (7.4-10.4); MONOCYTES 4.8 % (2-11); NEUTROPHILS 70.7 % (40-80); PLATELET COUNT 228 10x3/uL (130-400); RBC 4.58 10x6/uL (4.00-5.40); RDW 12.6 % (11.5-14.5); WBC 12.3 10x3/uL (4.8-10.8)
[2019-12-14 12:17] LABS: ALBUMIN 3.5 g/dL (3.4-5.0); ALKALINE PHOSPHATASE 113 U/L (30-120); ALT (SGPT) 27 U/L (10-68); BILIRUBIN - TOTAL 0.38 mg/dL (0.2-1.3); CALCIUM 9.1 mg/dL (8.5-10.1); CARBON DIOXIDE 24.3 mmol/L (21.0-32.0); CHLORIDE - SERUM 96 mmol/L (98-107); CKMB 0.5 U/L (0.0-3.6); CREATINE KINASE 69 UL (21-215); CREATININE - SERUM 0.9 mg/dL (0.6-1.3); MAGNESIUM - SERUM 1.9 mg/dL (1.8-2.4); POTASSIUM - SERUM 4.2 mmol/L (3.5-5.1); PROTEIN - SERUM 7.7 g/dL (6.4-8.2); SODIUM 131 mmol/L (136-145); THYROID STIMULATING HORMONE 1.05 uIU/mL (0.36-3.74); UREA NITROGEN 10 mg/dL (7-18); eGFR NON AFRICAN AMERICAN 69 mL/min (90-120)
[2019-12-14 12:22] LABS: BACTERIA MODERATE /hpf (NEGATIVE); BILIRUBIN NEGATIVE (NEGATIVE); EPITHELIAL CELLS 0-5 /hpf (0-5); GLUCOSE 1000 mg/dL (NEGATIVE); KETONE MODERATE mg/dL (NEGATIVE); NITRITE NEGATIVE (NEGATIVE); RED CELLS - URINE 0-5 /hpf (0-5); UROBILINOGEN NORMAL (NORMAL); WHITE CELLS - URINE OCC /hpf (NEGATIVE); YEAST <1+ /hpf (NONE SEEN)
[2019-12-14 12:56] LABS: CALC OSMOLALITY 281 mosm/kg (275-300); GLUCOSE 463 mg/dL (74-106); TROPONIN-I < 0.017 ng/mL (0.000-0.060)
[2019-12-14] MEDS ORDERED: GLYBURIDE2.5 MG PO (13:56)
[2019-12-14] MEDS ORDERED: ZOFRAN4 MG PO (13:56)
[2019-12-14 14:13] VITALS: BP 132/68
== END 2019-12-14 14:13 | disposition home or self-care (01) ==
LOC: D.ER 11:23
PROVIDERS: Family Medicine
DX: E11.65 Type 2 diabetes mellitus with hyperglycemia (principal); Z79.84 Long term (current) use of oral hypoglycemic drugs; T38.3X5A Adverse effect of insulin and oral hypoglycemic [antidiabetic] drugs, initial encounter; R10.9 Unspecified abdominal pain; R11.10 Vomiting, unspecified; I10 Essential (primary) hypertension; Z72.0 Tobacco use; E07.9 Disorder of thyroid, unspecified

== ENCOUNTER 2020-01-27 16:09 | Emergency (ER) | payer MEDICARE ==
[~2020-01-27] VITALS: Ht 165.1 cm; Wt 95.9 kg
[~2020-01-27 16:09] MED LIST changes: +GLUCOPHAGE500 MG PO; +GLYBURIDE2.5 MG PO; +ZOFRAN4 MG PO
[2020-01-27 16:21] VITALS: BP 148/94; Ht 165.1 cm; Wt 95.9 kg
[2020-01-27] MEDS ORDERED: TRULICITY1.5 MG/0.5 SC (16:28)
[2020-01-27] MEDS ORDERED: SYMBICORT 16010.2 GM INH (16:28)
[2020-01-27] MEDS ORDERED: PROAIR HFA8.5 G1 INH (16:28)
[2020-01-27] MEDS ORDERED: JARDIANCE10 MG PO (16:28)
[2020-01-27 16:48] LABS: BILIRUBIN NEGATIVE (NEGATIVE); GLUCOSE 1000 mg/dL (NEGATIVE); KETONE NEGATIVE (NEGATIVE); NITRITE NEGATIVE (NEGATIVE); UROBILINOGEN NORMAL (NORMAL)
[2020-01-27 17:45] LABS: BASOPHILS 0.2 % (0-2); EOSINOPHILS 0.8 % (0-7); HEMATOCRIT 46.8 % (36.0-48.0); HEMOGLOBIN 15.3 g/dL (12-16); IMMATURE GRANULOCYTES 0.4 % (0-5); LYMPHOCYTES 37.6 % (15-50); MCH 31.5 pg (26.0-34.0); MCHC 32.7 g/dL (31.0-37.0); MCV 96.5 fL (80.0-100.0); MEAN PLATELET VOLUME 11.5 fL (7.4-10.4); MONOCYTES 6.9 % (2-11); NEUTROPHILS 54.1 % (40-80); PLATELET COUNT 201 10x3/uL (130-400); RBC 4.85 10x6/uL (4.00-5.40); RDW 14.1 % (11.5-14.5); WBC 10.2 10x3/uL (4.8-10.8)
[2020-01-27 17:54] LABS: CALC OSMOLALITY 276 mosm/kg (275-300); CALCIUM 9.1 mg/dL (8.5-10.1); CARBON DIOXIDE 24.6 mmol/L (21.0-32.0); CHLORIDE - SERUM 105 mmol/L (98-107); CREATININE - SERUM 0.6 mg/dL (0.6-1.3); POTASSIUM - SERUM 3.6 mmol/L (3.5-5.1); SODIUM 139 mmol/L (136-145); UREA NITROGEN 11 mg/dL (7-18); eGFR NON AFRICAN AMERICAN > 90 mL/min (90-120)
[2020-01-27 17:55] LABS: GLUCOSE 107 mg/dL (74-106)
[2020-01-27 18:03] LABS: ALBUMIN 3.7 g/dL (3.4-5.0); ALKALINE PHOSPHATASE 87 U/L (30-120); ALT (SGPT) 23 U/L (10-68); AMYLASE - SERUM 38 U/L (25-115); BILIRUBIN - TOTAL 0.32 mg/dL (0.2-1.3); LIPASE 113 U/L (73-393); PROTEIN - SERUM 7.5 g/dL (6.4-8.2)
[2020-01-27 18:04] LABS: TROPONIN-I < 0.017 ng/mL (0.000-0.060)
== END 2020-01-27 19:30 | disposition home or self-care (01) ==
LOC: D.ER 16:09
PROVIDERS: Family Medicine
DX: M54.9 Dorsalgia, unspecified (principal); E11.9 Type 2 diabetes mellitus without complications; E03.9 Hypothyroidism, unspecified; I10 Essential (primary) hypertension; J44.9 Chronic obstructive pulmonary disease, unspecified; Z72.0 Tobacco use; Z79.84 Long term (current) use of oral hypoglycemic drugs; R10.32 Left lower quadrant pain

== ENCOUNTER 2020-02-07 17:10 | Inpatient (IN) | payer MEDICARE ==
[~2020-02-07] VITALS: Ht 165.1 cm; Wt 109.1 kg
--- NOTE | ~2020-02-07 | HEMODYNAMI ---
PATIENT:RAFIA RANDHAWA MEDICAL RECORD: [id number] : 63 [id number] ADMISSION DATE: 02/08/20 Generatedon:02/09/20209:10 Patient name: RAFIA RANDHAWA Patient #: [id number] : 1965 Date of study: 02/09/2020 Page: Of Hemodynamic Procedure Report Patient Data Patient Demographics Procedure consent was obtained First Name: RAFIA Gender: Female Last Name: SYDNEE : 1965 Middle Initial: OWEN Age: 54 year(s) Patient #: [id number] Race: SSN: [id number] Additional ID: [id number] Contact details Address: [address] [place] [address] State: [place] City: [place] Zip code: [address] Past Medical History Allergies Allergen Reaction Date Comments Reported Other allergy 02/09/2020 KETORALAC, CYMBALTA, TORADOL, IMITREX, TRAMADOL Admission Admission Data Admission Date: 02/08/2020 Admission Time: 11:06 Room #: D.2112 Lab Results Lab Result Date: 02/09/2020 Lab Result Time: 0:00 Biochemistry Name Units Result Min Max BUN mg/dl 13 --(--*-)-- 7 18 Creatinine mg/dl 0.8 --(-*--)-- 0.6 1.3 eGFR ml/min 79.85184 *-(----)-- 90 120 NONAFRICAN CBC Name Units Result Min Max Hematocrit % 41.5 -*(----)-- 42 54 Hemoglobin g/dl 13.7 --(*---)-- 13.5 17.5 Procedure Procedure Types Cath Procedure Diagnostic Procedure [facility] w/Coronaries Sedation Charges Moderate Sedation up to 15 minutes Procedure Description Procedure Date Procedure Date: 02/09/2020 Procedure Start Time: 8:53 Procedure End Time: 9:09 Procedure Staff Name Function Gerry Villar MD Performing Physician Meaghan Knott RN Nurse Mary Mosqueda RT Monitor Mariely Young RT Scrub Procedure Data Cath Procedure Fluoroscopy Diagnostic fluoroscopy Total fluoroscopy Time: 1.5 time: 1.5 min min Diagnostic fluoroscopy Total fluoroscopy dose: 427 dose: 427 mGy mGy Contrast Material Contrast Material Type Amount (ml) Isovue 300 55 Entry Location Entry Primary Successful Side Size Upsize Upsize Entry Closure Succes sful Closure Location (Fr) 1 (Fr) 2 (Fr) Remarks Device Remarks Femoral Right 5 Fr Exoseal artery Estimated blood loss: 5 ml Diagnostic catheters Device Type Used For End Catheter Placement MULTIPACK JL 4.0 5Fr Procedure catheter MULTIPACK 3DRC 5Fr Procedure catheter MULTIPACK Pigtail 5 Fr Procedure catheter Procedure Complications No complications Procedure Medications Medication Administration Route Dosage Oxygen etCO2 Nasal cannula 2 l/min Lidocaine 2% added to field 20 Heparin Flush Bag added to field 2 bags (1000units/500ml NS) 0.9% NaCl I.V. 100 ml/hr Versed I.V. 2 mg Fentanyl I.V. 100 mcg Versed I.V. 1 mg Fentanyl I.V. 50 mcg Versed I.V. 1 mg Fentanyl I.V. 50 mcg Hemodynamics Rest HGB: 13.7 (g/dl) Heart Rate: 75 (bpm) Pressure Samples Time Site Value (mmHg) Purpose Heart Use Rate(bpm) 9:03 LV 154/3,25 Snapshot 72 9:04 AO 160/86(117) Pullback 73 9:04 LV 165/2,32 Pullback 73 Gradients Valve Time Site 1 Site 2 Mean SEP/DFP Peak To Heart Use (mmHg) (sec/min) Peak Rate (mmHg) (bpm) Aortic 9:04 LV AO 17 9 5 73 165/2,32 160/86(117) Calculations Valve P-P Mean Valve Index Valve Source Name Gradient Area Flow (cm2) Aortic 5 17 5 17 Snapshots Pre Cath Intra NCS Post Cath Vital Signs Time Heart Resp SPO2 etCO2 NIBP (mmHg) Rhythm Pain Sedation Rate (ipm) (%) (mmHg) Status Level (bpm) 8:39:56 75 23 96 0 134/99(119) NSR 0 (11) 10(A) , No pain 8:43:52 75 12 95 0 131/92(118) NSR 0 (11) 10(A) , No pain 8:47:50 63 14 99 43.4 133/85(109) NSR 0 (11) 10(A) , No pain 8:51:47 63 18 96 39.7 115/85(104) NSR 0 (11) 10(A) , No pain 8:56:13 68 15 94 41.9 149/90(105) NSR 0 (11) 9(A) , No pain 9:00:13 69 15 92 43.4 129/95(119) NSR 0 (11) 9(A) , No pain 9:04:43 71 14 94 39 150/94(127) NSR 0 (11) 9(A) , No pain 9:08:43 69 14 94 21.7 139/83(129) NSR 0 (11) 10(A) , No pain Medications Time Medication Route Dose Verified Delivered Reason Notes Effe ctiveness by by 8:48:02 Oxygen etCO2 2 Gerry Buffie used for Nasal l/min Jian Knott RN procedure cannula 8:48:08 Lidocaine 2% added 20ml Gerry Gerry for local to vial Jian Villar MD anesthetic field 8:48:14 Heparin Flush added 2 Gerry Gerry used for Bag to bags Jian Villar MD procedure (1000units/500ml field NS) 8:48:23 0.9% NaCl I.V. 100 Gerry Buffie Per ml/hr Jian Knott RN physician 8:52:44 Versed I.V. 2 mg Gerry Buffie for Jain Knott RN sedation 8:52:51 Fentanyl I.V. 100 Gerry Buffie for mcg Jian Knott RN sedation 8:57:59 Versed I.V. 1 mg Gerry Buffie for Jian Knott RN sedation 8:58:04 Fentanyl I.V. 50 Gerry Buffie for mcg Jian Knott RN sedation 9:03:37 Versed I.V. 1 mg Gerry Buffie for Jian Knott RN sedation 9:03:41 Fentanyl I.V. 50 Gerry Buffie for mcg Jian Knott RN sedation Procedure Log Time Note 8:10:20 Mariely Young RT(R) sent for patient. Start room use. 8:15:54 Informed consent obtained and on chart 8:35:18 Procedure Status Urgent Heart Cath (IP). 8:35:27 Time tracking: Regular hours (M-F 7:00 - 5:00) 8:35:31 Plan of Care:Hemodynamics will remain stable., Cardiac rhythm will remain stable., Comfort level will be maintained., Respiratory function will remain adequate., Patient/ family verbilizes understanding of procedure., Procedure tolerated without complication., Recovers from procedure without complications.. 8:35:44 H&P Date Dictated: 02/09/2020 ER History on chart.. 8:39:03 Patient received from Med II to CCL 2 Alert and oriented. Tansferred to table in Supine position. 8:39:05 Warm blankets applied, and venkat hugger turned on for patient comfort. 8:39:05 Correct patient and procedure confirmed by team. 8:39:06 ECG and BP/O2 sat monitors applied to patient. 8:39:12 Vital chart was started 8:39:13 Baseline sample Acquired. 8:39:16 Rhythm: sinus rhythm 8:39:18 Full Disclosure recording started 8:39:18 Pre-procedure instructions explained to patient. 8:39:19 Pre-op teaching completed and patient verbalized understanding. 8:39:20 Family in patients room. 8:39:22 Patient NPO since Midnight. 8:40:17 Patient allergic to Other allergyKETORALAC, CYMBALTA, TORADOL, IMITREX, TRAMADOL 8:40:20 Is patient on blood thinner?No 8:40:21 Patient diabetic? Yes. 8:40:22 If diabetic: On Metformin? No 8:40:26 Patient not . Patient is over age 55. 8:40:30 Previous problem with sedation/anesthesia? No ? 8:40:30 Snore? Yes 8:40:31 Sleep apnea? No 8:40:32 Deviated septum? No 8:40:33 Opens mouth fully? No 8:40:34 Sticks out tongue? Yes 8:40:36 Airway obstruction? No ? 8:40:37 Dentures? No ? 8:40:41 Pre procedure: right dorsailis pedis pulse 1+ Palpable, but thready & weak; easily obliterated 8:40:46 Patient pain scale 0/10 ?. 8:40:50 IV patent on arrival in left forearm with 0.9% NaCl at [facility]. 8:41:37 Lab Result : BUN 13 mg/dl 8:41:37 Lab Result : Creatinine 0.8 mg/dl 8:41:37 Lab Result : eGFR NONAFRICAN 79.26705 ml/min 8:41:37 Lab Result : Hemoglobin 13.7 g/dl 8:41:37 Lab Result : Hematocrit 41.5 % 8:42:04 Lab results completed and on chart. 8:42:07 Right groin area was prepped with chlora-prep and draped in sterile fashion 8:42:09 Alarms reviewed by R. N. 8:42:09 Sharps counted by scrub and verified by R.N. 8:46:18 Use device set Femoral Dx 8:46:20 ACIST Syringe (26871) opened to sterile field. 8:46:20 Bag Decanter (2002S) opened to sterile field. 8:46:21 ACIST Hand Control (35164) opened to sterile field. 8:46:22 ACIST Manifold (29140) opened to sterile field. 8:46:22 Tegaderm 4 x 4 (1626W) opened to sterile field. 8:46:23 Medline Cath Pack ([id number]) opened to sterile field. 8:46:24 DIAGNOSTIC Multipack 5Fr catheter set (TA3544) opened to sterile field. 8:46:25 SHEATH 5FR [place] (LDD823) opened to sterile field. 8:46:26 EMERALD Guide Wire (155-125) opened to sterile field. 8:48:02 Oxygen 2 l/min etCO2 Nasal cannula was administered by Meaghan Knott RN; used for procedure; Verbal order read back and verified. 8:48:08 Lidocaine 2% 20ml vial added to field was administered by Gerry Villar MD; for local anesthetic; Verbal order read back and verified. 8:48:14 Heparin Flush Bag (1000units/500ml NS) 2 bags added to field was administered by Gerry Villar MD; used for procedure; Verbal order read back and verified. 8:48:23 0.9% NaCl 100 ml/hr I.V. was administered by Meaghan Knott RN; Per physician; Verbal order read back and verified. 8:49:59 --------ALL STOP TIME OUT------ 8:50:00 Final Timeout: patient, procedure, and site verified with staff and physician. All members of the team are in agreement. 8:50:01 Right groin site verified by team. 8:50:03 Fire Safety Assessment: A--An alcohol-based skin anteseptic being used preoperatively., C--Open oxygen or nitrous oxide is being used., D--An ESU, laser, or fiber-optic light is being used. 8:50:07 Physical assessment completed. ASA score P 2 - A patient with mild systemic disease as per Gerry Villar MD. 8:50:19 2) 60-89 Mildly reduced kidney function, and other findings (as for stage 1) point to kidney disease. 8:50:21 Maximum allowable contrast dose (3.7 X eGFR X 0.75)222 ml. 8:50:24 Sedation plan: IV Moderate Sedation Medication:Versed, Fentanyl 8:52:44 Versed 2 mg I.V. was administered by Meaghan Knott RN; for sedation; Verbal order read back and verified. 8:52:51 Fentanyl 100 mcg I.V. was administered by Meaghan Knott RN; for sedation; Verbal order read back and verified. 8:53:03 Procedure started. 8:53:09 Zero performed for pressure channel P1 8:53:13 Zero performed for pressure channel P1 8:53:58 Local anesthetic to right femoral artery with Lidocaine 2% by Gerry Villar MD.INITIAL ACCESS ONLY 8:57:38 A 5 Fr sheath was inserted into the Right Femoral artery 8:57:59 Versed 1 mg I.V. was administered by Meaghan Knott RN; for sedation; Verbal order read back and verified. 8:58:04 Fentanyl 50 mcg I.V. was administered by Meaghan Knott RN; for sedation; Verbal order read back and verified. 8:58:40 A MULTIPACK JL 4.0 5Fr catheter was advanced over the wire and used for Procedure. 9:00:11 LCA angiography performed. 9:00:23 Catheter exchanged over wire. 9:00:49 A MULTIPACK 3DRC 5Fr catheter was advanced over the wire and used for Procedure. 9:01:47 RCA angiography performed. 9:01:54 Catheter exchanged over wire. 9:01:57 ACCDominant side:Co-Dominant 9:02:42 A MULTIPACK Pigtail 5 Fr catheter was advanced over the wire and used for Procedure. 9:03:06 LV gram done using BLAKELY 9:03:15 Injector settings: Ml/sec: 10, Volume: 20, 9:03:34 LV hemodynamics recorded. 9:03:37 Versed 1 mg I.V. was administered by Meaghan Knott RN; for sedation; Verbal order read back and verified. 9:03:41 Fentanyl 50 mcg I.V. was administered by Meaghan Knott RN; for sedation; Verbal order read back and verified. 9:03:50 EF : 55 % 9:04:11 Catheter removed. 9:04:14 EXOSEAL 5Fr (EX500) opened to sterile field. 9:05:20 Sheath removed intact; hemostasis achieved with Exoseal to the Right Femoral artery. 9:05:23 Procedure ended.(Physican Out) 9:05:39 Fluoroscopy time 01.50 minutes. 9:05:42 Flurop Dose total: 427 9:05:42 Fluoroscopy dose: 427 mGy 9:05:48 Dose Area Product 02549 mGy/cm. 9:05:58 Contrast amount:Isovue 300 55ml. 9:06:01 Maximum allowable dose exceeded? No. 9:06:02 Sharps counted by scrub and verified by R.N. 9:06:04 Post-op/insertion site Right Femoral artery dressed using a 4 x 4 and Tegaderm. 9:06:06 Post-procedure physical assessment completed. ASA score P 2 - A patient with mild systemic disease as per Gerry Villar MD. 9:06:08 Post procedure rhythm: sinus rhythm 9:06:10 Estimated blood loss: 5 ml 9:06:11 Post procedure instruction explained to patient.Patient verbalizes understanding. 9:06:11 Patient needs reinforcement of post procedure teaching. 9:06:38 Procedure type changed to Cath procedure, Diagnostic procedure, LHC, [facility] w/Coronaries, Sedation Charges, Moderate Sedation up to 15 minutes 9:06:57 Procedure and supply charges have been captured, reviewed, submitted and are correct. 9:07:00 Procedure Complication : No complications 9:07:03 [facility] Findings: mild to moderate CAD (<70%) 9:07:05 Operative report dictated upon procedure completion. 9:07:06 See physician's report for complete and final results. 9:07:11 Report given to [facility] II. 9:07:14 Patient transfered to [facility] with Bed. 9:09:14 Vital chart was stopped 9:09:17 Procedure ended. 9:09:17 Full Disclosure recording stopped 9:09:23 End room use (Document Last) 9:09:32 End room use (Document Last) 9:10:08 End room use (Document Last) Device Usage Item Name Manufacture Quantity Catalog Hospital Part Current Minimal L ot# / Number Charge Number Stock Stock Serial# Code ACIST Acist 1 19425 802251 615879 077712 20 Syringe Medical (16417) Systems Inc Bag Microtek 1 848399 31663 304626 5 Decanter Medical Inc. () ACIST Hand Acist 1 99597 687367 175983 026613 5 Control Medical (78961) Systems Inc ACIST Acist 1 88930 702395 720411 101484 5 Manifold Medical (84625) Systems Inc Tegaderm 4 3M 1 1626W 012305 165876 790316 5 x 4 (1626W) Medline Medline 1 [id number] 527068 48299 013632 5 Cath Pack (MDMO44137) DIAGNOSTIC Cardinal 1 JI3179 359746 70196 959553 30 Multipack Health 5Fr catheter set (DR2730) SHEATH 5FR Terumo 1 OLL236 107694 430994 801187 5 [place] (NQD867) EMERALD Cardinal 1 502-455 156456 265341 276564 5 Guide Wire Health (502455) MULTIPACK Cardinal 1 004464 5 JL 4.0 5Fr Health catheter MULTIPACK Cardinal 1 895822 5 3DRC 5Fr Health catheter MULTIPACK Cardinal 1 006709 5 Pigtail 5 Health Fr catheter EXOSEAL 5Fr Cardinal 1 EX500 676306 602729 630720 10 (EX500) Health Signature Audit [place] Stage Time Signature Unsigned Intra-Procedure 02/09/2020 Mary Mosqueda 9:09:32 AM RT(R) Intra-Procedure 02/09/2020 Meaghan Knott RN 9:10:08 AM Intra-Procedure 02/09/2020 Gerry Villar MD 9:10:33 AM Signatures Performing Physician : Signature : Gerry Villar MD Date : Time : Nurse : Buffie Knott RN Signature : Date : Time : Monitor : Mary Mosqueda Signature : RT Date : Time : [address] [place] [address]
[~2020-02-07 17:10] MED LIST changes: +JARDIANCE10 MG PO; +PROAIR HFA8.5 G1 INH; +SYMBICORT 16010.2 GM INH; +TRULICITY1.5 MG/0.5 SC
[2020-02-07 18:38] LABS: BASOPHILS 0.1 % (0-2); EOSINOPHILS 0.6 % (0-7); HEMATOCRIT 47.5 % (36.0-48.0); IMMATURE GRANULOCYTES 0.4 % (0-5); MCH 31.9 pg (26.0-34.0); MCHC 33.7 g/dL (31.0-37.0); MCV 94.8 fL (80.0-100.0); MEAN PLATELET VOLUME 11.2 fL (7.4-10.4); MONOCYTES 5.5 % (2-11); NEUTROPHILS 60.4 % (40-80); PLATELET COUNT 222 10x3/uL (130-400); RBC 5.01 10x6/uL (4.00-5.40); RDW 14.1 % (11.5-14.5); WBC 12.2 10x3/uL (4.8-10.8)
[2020-02-07 18:47] LABS: APTT 25.3 SECONDS (22.8-39.4); INR 0.93 (0.85-1.17); PROTIME 12.4 SECONDS (11.6-15.0)
[2020-02-07 18:49] LABS: CALC OSMOLALITY 277 mosm/kg (275-300); CALCIUM 9.1 mg/dL (8.5-10.1); CARBON DIOXIDE 26.1 mmol/L (21.0-32.0); CHLORIDE - SERUM 104 mmol/L (98-107); CREATININE - SERUM 0.7 mg/dL (0.6-1.3); GLUCOSE 116 mg/dL (74-106); POTASSIUM - SERUM 3.4 mmol/L (3.5-5.1); SODIUM 140 mmol/L (136-145); UREA NITROGEN 8 mg/dL (7-18); eGFR NON AFRICAN AMERICAN > 90 mL/min (90-120)
[2020-02-07 19:03] LABS: ALBUMIN 3.7 g/dL (3.4-5.0); ALKALINE PHOSPHATASE 89 U/L (30-120); ALT (SGPT) 19 U/L (10-68); BILIRUBIN - TOTAL 0.49 mg/dL (0.2-1.3); CKMB 0.4 U/L (0.0-3.6); CREATINE KINASE 63 UL (21-215); MAGNESIUM - SERUM 2.3 mg/dL (1.8-2.4); PROTEIN - SERUM 7.7 g/dL (6.4-8.2); TROPONIN-I < 0.017 ng/mL (0.000-0.060)
--- NOTE | 2020-02-07 19:10 | NUR ---
PT ALERT. STATES CHEST PAIN IS STILL AROUND A 5. C/O HEADACHE WELL. DR BHAKTA IN TO SEE PATIENT.
[2020-02-07 20:28] VITALS: BP 143/77
--- NOTE | 2020-02-07 21:33 | NUR ---
ADMIT TO ROOM 2111 FROM ER. ALERT/ORIENTED. HOME MEDS HAVE BEEN REVIEWED BY LAB AIDE AND PUT ON HOLD FOR THE NIGHT. ADMISSION ASSESSMENT AND HISTORY INITIATED. PT WILL BE NPO AFTER MIDNIGHT FOR CARDIOLOGY CONSULT IN AM.
--- NOTE | 2020-02-08 00:28 | NUR ---
PT MEDICATED FOR PAIN WITH IV MORPHINE. RESTING IN BED. NPO FOR AM CARDIOLOGY CONSULT. SR PER TELEMETRY.
[2020-02-08 01:27] VITALS: BP 143/77; Ht 165.1 cm; Wt 109.1 kg
[2020-02-08 01:30] LABS: CKMB 0.6 U/L (0.0-3.6); CREATINE KINASE 55 UL (21-215); TROPONIN-I < 0.017 ng/mL (0.000-0.060)
--- NOTE | 2020-02-08 03:30 | NUR ---
RESTING IN BED WITH NO DISTRESS. SR/64 . CALL LIGHT IN REACH. CPOC.
[2020-02-08 03:57] LABS: HEMATOCRIT 44.4 % (36.0-48.0); HEMOGLOBIN 14.7 g/dL (12-16); LYMPHOCYTES 41.1 % (15-50); MCH 31.3 pg (26.0-34.0); MCHC 33.1 g/dL (31.0-37.0); MCV 94.7 fL (80.0-100.0); NEUTROPHILS 52.4 % (40-80); PLATELET COUNT 226 10x3/uL (130-400); RBC 4.69 10x6/uL (4.00-5.40); RDW 13.4 % (11.5-14.5); WBC 10.5 10x3/uL (4.8-10.8)
[2020-02-08 04:24] LABS: ALBUMIN 3.3 g/dL (3.4-5.0); ALKALINE PHOSPHATASE 84 U/L (30-120); ALT (SGPT) 9 U/L (10-68); BILIRUBIN - TOTAL 0.39 mg/dL (0.2-1.3); CALC OSMOLALITY 281 mosm/kg (275-300); CALCIUM 8.7 mg/dL (8.5-10.1); CARBON DIOXIDE 26.5 mmol/L (21.0-32.0); CHLORIDE - SERUM 105 mmol/L (98-107); CKMB 0.5 U/L (0.0-3.6); CREATINE KINASE 54 UL (21-215); CREATININE - SERUM 0.8 mg/dL (0.6-1.3); GLUCOSE 130 mg/dL (74-106); MAGNESIUM - SERUM 2.4 mg/dL (1.8-2.4); POTASSIUM - SERUM 3.8 mmol/L (3.5-5.1); SODIUM 141 mmol/L (136-145); TROPONIN-I < 0.017 ng/mL (0.000-0.060); UREA NITROGEN 9 mg/dL (7-18); eGFR NON AFRICAN AMERICAN 79 mL/min (90-120)
[2020-02-08 05:00] VITALS: BP 128/71
--- NOTE | 2020-02-08 07:56 | NUR ---
OLD IV ACCIDENTLY PULLED OUT BY PATIENT. RESITED 20G TO INNER LEFT FOREARM.
--- NOTE | 2020-02-08 08:37 | NUR ---
AM MEDS GIVEN AT THIS TIME. ALSO GAVE 4MG OF MORHINE FOR PAIN LEVEL OF 8/10. PT HAVING HEART CATH IN AM OK TO HAVE BREAKFAST. PT DENIES ANY OTHER NEEDS AT THIS TIME. CALL LIGHT IN REACH, NAD NOTED, WILL CONTINUE TO MONITOR.
[2020-02-08 10:06] VITALS: BP 128/83
[2020-02-08 11:18] LABS: ALT (SGPT) 20 U/L (10-68); CALC OSMOLALITY 279 mosm/kg (275-300); CALCIUM 9.1 mg/dL (8.5-10.1); CARBON DIOXIDE 26.9 mmol/L (21.0-32.0); CHLORIDE - SERUM 104 mmol/L (98-107); CHOL - HDL RATIO 5.5 ratio (2.3-4.1); CHOLESTEROL, TOTAL 188 mg/dL (0-200); CREATININE - SERUM 0.7 mg/dL (0.6-1.3); GLUCOSE 129 mg/dL (74-106); HDL CHOLESTEROL 34 mg/dL (32-96); LDL CHOLESTEROL 101 mg/dL (0-100); POTASSIUM - SERUM 4.2 mmol/L (3.5-5.1); SODIUM 140 mmol/L (136-145); TRIGLYCERIDE 265 mg/dL (30-200); UREA NITROGEN 9 mg/dL (7-18); eGFR NON AFRICAN AMERICAN > 90 mL/min (90-120)
--- NOTE | 2020-02-08 12:36 | NUR ---
4MG OF MORPHINE FOR PAIN LEVELM OF /10. PT DENIES ANY OTHER NEEDS AT THIS TIME. CALL LIGHT IN REACH, FAMILY AT BEDSIDE.
[2020-02-08] MEDS ORDERED: NEURONTIN 300300 MG PO (14:36)
[2020-02-08] MEDS ORDERED: OXYBUTYNIN CHLOR5 MG PO (14:39)
--- NOTE | 2020-02-08 14:42 | NUR ---
CONSENTS SIGNED BY PT AND PLACED ON CHART.
--- NOTE | 2020-02-08 16:24 | NUR ---
BLOOD SUGAR OF 113, NO COVERAGE NEEDED PER S/S. PT DENIES ANY NEEDS AT THIS TIME. CALL LIGHT IN REACH, NAD NOTED, WILL CONTINUE TO MONITOR.
--- NOTE | 2020-02-08 17:10 | NUR ---
4MG OF MORPHINE GIVEN FOR PAIN LEVEL OF 6/10. PT DENIES ANY OTHER NEEDS AT THIS TIME. CALL LIGHT IN REACH, NAD NOTED, WILL CONTINUE TO MONITOR.
[2020-02-08 18:06] VITALS: BP 122/77
[2020-02-08 21:30] VITALS: BP 127/77
[2020-02-09 04:29] VITALS: BP 123/80
[2020-02-09 05:52] LABS: HEMATOCRIT 46.2 % (36.0-48.0); HEMOGLOBIN 14.9 g/dL (12-16); LYMPHOCYTES 36.3 % (15-50); MCH 30.5 pg (26.0-34.0); MCHC 32.3 g/dL (31.0-37.0); MCV 94.7 fL (80.0-100.0); MEAN PLATELET VOLUME 10.8 fL (7.4-10.4); NEUTROPHILS 59.1 % (40-80); PLATELET COUNT 208 10x3/uL (130-400); RBC 4.88 10x6/uL (4.00-5.40); RDW 13.3 % (11.5-14.5); WBC 10.9 10x3/uL (4.8-10.8)
--- NOTE | 2020-02-09 06:29 | NUR ---
I have reviewed this patient and I concur with the Shift Assessment completed by the Licensed Practical Nurse today this shift.
[2020-02-09 06:31] LABS: ALBUMIN 3.6 g/dL (3.4-5.0); ANION GAP 14.9 mmol/L (8-16); BILIRUBIN - TOTAL 0.42 mg/dL (0.2-1.3); CARBON DIOXIDE 25.3 mmol/L (21.0-32.0); MAGNESIUM - SERUM 2.2 mg/dL (1.8-2.4); PROTEIN - SERUM 7.5 g/dL (6.4-8.2)
[2020-02-09 06:32] LABS: CREATININE - SERUM 0.9 mg/dL (0.6-1.3)
[2020-02-09 06:33] LABS: POTASSIUM - SERUM 3.2 mmol/L (3.5-5.1)
--- NOTE | 2020-02-09 08:17 | NUR ---
PRE-OP MEDS GIVEN AND AM MEDS WITH A SIP OF WATER. PT DENIES ANY NEEDS AT THIS TIME. CALL LIGHT IN REACH, FAMILY AT BEDSIDE,NAD NOTED, WILL CONTINUE PLAN OF CAER.
--- NOTE | 2020-02-09 08:20 | NUR ---
PT TO PROOFER.
--- NOTE | 2020-02-09 09:34 | NUR ---
RECEIVED PT BACK TO ROOM 2111, PT STILL DROWSY BUT EASILY AROUSES TO VOICE. VITAL SIGNS STABLE, PLACED PT ON FREQUENT VITAL SIGNS. RT GROIN DRESSSING CDI, NO S/S OF BLEEDING OR HEMATOMA. PT DENIES ANY NEEDS AT THIS TIME. CALL LIGHT IN REACH, NAD NOTED, WILL CONTINUE TO MONITOR.
--- NOTE | 2020-02-09 09:55 | NUR ---
NO CHANGES TO RT GROIN FROM PREVIOUS ASSSESSMENT. PT RESTING COMFORTABLY IN BED, FAMILY AT BEDSIDE.
--- NOTE | 2020-02-09 11:08 | NUR ---
BLOOD SUGAR OF 105, NO COVERAGE NEEDED PER S/S. PT RESTING COMFORTABLY IN BED, DENIES ANY NEEDS AT THIS TIME. CALL LIGHT IN REACH, NAD NOTED.
--- NOTE | 2020-02-09 11:57 | NUR ---
PROVIDED VERBAL AND WRITTEN DISCHARGE TEACHING TO PT, WHO VERBALIZED UNDERSTANDING REGARDING TEACHING. D/C LT FA IV WITH CATHETER TIP INTACT. HEART MONITOR REMOVED AND TAKEN TO SUPERVISOR KENNEL. NO CHANGES TO RT GROIN. PT LEFT UNIT VIA WHEELCHAIR, WITH ALL BELONGINGS, NAD NOTED.
== END 2020-02-09 11:59 | disposition home or self-care (01) | DRG 287 ==
LOC: D.ER 17:10 → D.M2 19:24 → OBSVTIME 19:24 → D.M2 19:24
PROVIDERS: Emergency Medicine; Family Medicine; Internal Medicine Cardiovascular Disease; ADMIT Family Medicine; ATTEND Family Medicine
PROC: B2151ZZ Fluoroscopy of Left Heart using Low Osmolar Contrast (ICD-10-PCS; 2020-02-09)
PROC: 4A023N7 Measurement of Cardiac Sampling and Pressure, Left Heart, Percutaneous Approach (ICD-10-PCS; 2020-02-09)
PROC: B2111ZZ Fluoroscopy of Multiple Coronary Arteries using Low Osmolar Contrast (ICD-10-PCS; principal; 2020-02-09 08:10)
DX: I25.110 Atherosclerotic heart disease of native coronary artery with unstable angina pectoris (principal); E03.9 Hypothyroidism, unspecified; E11.9 Type 2 diabetes mellitus without complications; I10 Essential (primary) hypertension; J44.9 Chronic obstructive pulmonary disease, unspecified; F41.8 Other specified anxiety disorders

== ENCOUNTER 2020-05-13 13:02 | Emergency (ER) | payer MEDICARE ==
[~2020-05-13] VITALS: Ht 165.1 cm; Wt 87.3 kg
[~2020-05-13 13:02] MED LIST changes: +OXYBUTYNIN CHLOR5 MG PO
[2020-05-13 13:15] VITALS: Ht 165.1 cm; Wt 87.3 kg
[2020-05-13 14:00] LABS: BILIRUBIN NEGATIVE (NEGATIVE); KETONE NEGATIVE (NEGATIVE); NITRITE NEGATIVE (NEGATIVE); UROBILINOGEN NORMAL mg/dL (< 2)
[2020-05-13 14:02] LABS: BACTERIA FEW HPF (NONE SEEN); WHITE CELLS - URINE 6 HPF (0-4)
[2020-05-13 14:31] LABS: BASOPHILS 0.2 % (0-2); EOSINOPHILS 0.8 % (0-7); HEMATOCRIT 46.3 % (36.0-48.0); HEMOGLOBIN 15.1 g/dL (12-16); IMMATURE GRANULOCYTES 0.5 % (0-5); LYMPHOCYTES 28.7 % (15-50); MCH 30.8 pg (26.0-34.0); MCHC 32.6 g/dL (31.0-37.0); MCV 94.3 fL (80.0-100.0); MEAN PLATELET VOLUME 11.4 fL (7.4-10.4); MONOCYTES 6.4 % (2-11); NEUTROPHILS 63.4 % (40-80); PLATELET COUNT 208 10x3/uL (130-400); RBC 4.91 10x6/uL (4.00-5.40); RDW 14.9 % (11.5-14.5); WBC 12.4 10x3/uL (4.8-10.8)
[2020-05-13 14:42] LABS: CALC OSMOLALITY 287 mosm/kg (275-300); CALCIUM 8.9 mg/dL (8.5-10.1); CHLORIDE - SERUM 108 mmol/L (98-107); CREATININE - SERUM 0.8 mg/dL (0.6-1.3); GLUCOSE 100 mg/dL (74-106); POTASSIUM - SERUM 3.7 mmol/L (3.5-5.1); SODIUM 145 mmol/L (136-145); UREA NITROGEN 9 mg/dL (7-18); eGFR NON AFRICAN AMERICAN 79 mL/min (90-120)
[2020-05-13 14:52] LABS: ALBUMIN 3.5 g/dL (3.4-5.0); ALKALINE PHOSPHATASE 79 U/L (30-120); ALT (SGPT) 14 U/L (10-68); AMYLASE - SERUM 34 U/L (25-115); BILIRUBIN - TOTAL 0.25 mg/dL (0.2-1.3); LIPASE 102 U/L (73-393); PROTEIN - SERUM 7.4 g/dL (6.4-8.2)
[2020-05-13 17:28] VITALS: BP 186/113
== END 2020-05-13 17:29 | disposition home or self-care (01) ==
LOC: D.ER 13:02
PROVIDERS: Emergency Medicine
DX: K59.00 Constipation, unspecified (principal); E11.9 Type 2 diabetes mellitus without complications; I10 Essential (primary) hypertension; J44.9 Chronic obstructive pulmonary disease, unspecified

== ENCOUNTER 2020-05-18 10:30 | Emergency (ER) | payer MEDICARE ==
[~2020-05-18] VITALS: Ht 165.1 cm; Wt 87.3 kg
[2020-05-18 10:31] VITALS: Ht 165.1 cm; Wt 87.3 kg
--- NOTE | 2020-05-18 11:19 | NUR ---
DR ROBERTSON NOTIFIED AND REVIEWED PT'S BEHAVIOR AND ASSESSMENT. PT IS HIGH RISK. SHE IS CURRENTLY SUICIDAL. SITTER ORDERED AND AT BEDSIDE. SAFETY PLAN INITIATED. RESOURCES GIVEN AND SHE VERBALIZES UNDERSTANDING.
[2020-05-18 11:22] LABS: CALC OSMOLALITY 274 mosm/kg (275-300); CALCIUM 9.3 mg/dL (8.5-10.1); CARBON DIOXIDE 23.8 mmol/L (21.0-32.0); CHLORIDE - SERUM 104 mmol/L (98-107); CREATININE - SERUM 0.6 mg/dL (0.6-1.3); GLUCOSE 103 mg/dL (74-106); SODIUM 139 mmol/L (136-145); UREA NITROGEN 5 mg/dL (7-18); eGFR NON AFRICAN AMERICAN > 90 mL/min (90-120)
[2020-05-18 11:30] LABS: BASOPHILS 0.3 % (0-2); EOSINOPHILS 0.7 % (0-7); HEMOGLOBIN 15.1 g/dL (12-16); IMMATURE GRANULOCYTES 0.3 % (0-5); LYMPHOCYTES 35.4 % (15-50); MCH 31.5 pg (26.0-34.0); MCHC 33.6 g/dL (31.0-37.0); MCV 93.9 fL (80.0-100.0); MEAN PLATELET VOLUME 11.5 fL (7.4-10.4); MONOCYTES 6.9 % (2-11); NEUTROPHILS 56.4 % (40-80); PLATELET COUNT 187 10x3/uL (130-400); RBC 4.79 10x6/uL (4.00-5.40); RDW 14.6 % (11.5-14.5); WBC 10.5 10x3/uL (4.8-10.8)
[2020-05-18 11:31] LABS: ALBUMIN 3.5 g/dL (3.4-5.0); ALKALINE PHOSPHATASE 81 U/L (30-120); ALT (SGPT) 13 U/L (10-68); BILIRUBIN - TOTAL 0.32 mg/dL (0.2-1.3); MAGNESIUM - SERUM 2.4 mg/dL (1.8-2.4); PROTEIN - SERUM 7.3 g/dL (6.4-8.2); VALPROIC ACID (DEPAKOTE) 74.9 ug/mL (50.0-100.0)
[2020-05-18 11:34] LABS: UDS - AMPHET NEGATIVE QUAL (NEGATIVE); UDS - BARB NEGATIVE QUAL (NEGATIVE); UDS - BENZO NEGATIVE QUAL (NEGATIVE); UDS - COCAINE NEGATIVE QUAL (NEGATIVE); UDS - OPIATE NEGATIVE QUAL (NEGATIVE); UDS - PCP NEGATIVE QUAL (NEGATIVE); UDS - THC POSITIVE QUAL (NEGATIVE)
[2020-05-18 12:49] LABS: BILIRUBIN NEGATIVE (NEGATIVE); KETONE NEGATIVE (NEGATIVE); NITRITE NEGATIVE (NEGATIVE); UROBILINOGEN NORMAL mg/dL (< 2)
[2020-05-18 12:50] LABS: BACTERIA NONE SEEN HPF (NONE SEEN); EPITHELIAL CELLS RARE /hpf (0-5); WHITE CELLS - URINE RARE HPF (0-4)
[2020-05-18 21:17] VITALS: BP 148/101
== END 2020-05-18 21:18 ==
LOC: D.ER 10:30
PROVIDERS: Emergency Medicine
DX: T14.91XA Suicide attempt, initial encounter (principal); X78.9XXA Intentional self-harm by unspecified sharp object, initial encounter; Y93.9 Activity, unspecified; Y92.9 Unspecified place or not applicable; F32.9 Major depressive disorder, single episode, unspecified; G62.89 Other specified polyneuropathies; S60.812A Abrasion of left wrist, initial encounter; E11.9 Type 2 diabetes mellitus without complications; I10 Essential (primary) hypertension; J44.9 Chronic obstructive pulmonary disease, unspecified; Z72.0 Tobacco use

== ENCOUNTER 2020-12-29 11:51 | Emergency (ER) | payer MEDICARE, MEDICAID ==
[~2020-12-29] VITALS: Ht 165.1 cm; Wt 90.9 kg
[~2020-12-29 11:51] MED LIST changes: +DULCOLAX STOOL100 MG PO; +MIRALAX17 GM PO; +REGLAN5 MG PO
[2020-12-29 11:55] VITALS: BP 150/93; Ht 165.1 cm; Wt 90.9 kg
[2020-12-29 12:26] LABS: BASOPHILS 0.6 % (0-2); EOSINOPHILS 0.6 % (0-7); HEMATOCRIT 44.6 % (36.0-48.0); HEMOGLOBIN 15.3 g/dL (12-16); LYMPHOCYTES 33.5 % (15-50); MCH 31.8 pg (26.0-34.0); MCHC 34.3 g/dL (31.0-37.0); MCV 92.7 fL (80.0-100.0); MEAN PLATELET VOLUME 9.7 fL (7.4-10.4); MONOCYTES 8.1 % (2-11); NEUTROPHILS 57.2 % (40-80); PLATELET COUNT 195 10x3/uL (130-400); RBC 4.81 10x6/uL (4.00-5.40); RDW 13.9 % (11.5-14.5); WBC 12.4 10x3/uL (4.8-10.8)
[2020-12-29 12:33] LABS: CALC OSMOLALITY 278 mosm/kg (275-300); CARBON DIOXIDE 26.9 mmol/L (21.0-32.0); CHLORIDE - SERUM 106 mmol/L (98-107); CREATININE - SERUM 0.6 mg/dL (0.6-1.3); GLUCOSE 133 mg/dL (74-106); SODIUM 140 mmol/L (136-145); UREA NITROGEN 6 mg/dL (7-18); eGFR NON AFRICAN AMERICAN > 90 mL/min (90-120)
[2020-12-29 12:42] LABS: ALBUMIN 3.7 g/dL (3.4-5.0); ALKALINE PHOSPHATASE 88 U/L (30-120); ALT (SGPT) 19 U/L (10-68); AMYLASE - SERUM 39 U/L (25-115); BILIRUBIN - TOTAL 0.15 mg/dL (0.2-1.3); LIPASE 128 U/L (73-393); PROTEIN - SERUM 7.6 g/dL (6.4-8.2); TROPONIN-I < 0.017 ng/mL (0.000-0.060)
[2020-12-29 13:30] LABS: BILIRUBIN NEGATIVE (NEGATIVE); KETONE NEGATIVE (NEGATIVE); NITRITE NEGATIVE (NEGATIVE); UROBILINOGEN NORMAL mg/dL (< 2)
[2020-12-29] MEDS ORDERED: GOLYTELY SOLU4000 ML PO (15:33)
[2020-12-29] MEDS ORDERED: ZOFRAN ODT4 MG/UDTAB PO (15:33)
== END 2020-12-29 17:26 | disposition other institution (70) ==
LOC: D.ER 11:51
PROVIDERS: Family Medicine
DX: R10.9 Unspecified abdominal pain (principal); R14.0 Abdominal distension (gaseous); E11.9 Type 2 diabetes mellitus without complications; I10 Essential (primary) hypertension; J44.9 Chronic obstructive pulmonary disease, unspecified